=== PATIENT | female | born 1950 | race Asian ===

== ENCOUNTER → 2024-01-29 14:11 | Outpatient (REF) | payer MEDICARE, SELFPAY | LOC: HWRCS 14:11 | PROVIDERS: ATTENDING PHYSICIAN Internal Medicine Cardiovascular Disease; FAMILY PHYSICIAN Internal Medicine | DX: I50.32 Chronic diastolic (congestive) heart failure (principal); I34.1 Nonrheumatic mitral (valve) prolapse; Z01.810 Encounter for preprocedural cardiovascular examination | CPT/HCPCS: 93306 ==

== ENCOUNTER → 2024-03-15 16:00 | Outpatient (REF) | payer MEDICARE, SELFPAY | LOC: DHSLP 16:00 | PROVIDERS: ATTENDING PHYSICIAN Internal Medicine Cardiovascular Disease; FAMILY PHYSICIAN Internal Medicine | DX: G47.33 Obstructive sleep apnea (adult) (pediatric) (principal) | CPT/HCPCS: 95806 ==

== ENCOUNTER 2025-03-24 13:33 | Inpatient (IN) | payer MEDICARE, SELFPAY ==
[2025-03-24] VITALS (15 sets, daily range): BP systolic 105–150; BP diastolic 38–60; BMI 34.9; BMI 33.8
--- NOTE | 2025-03-24 06:08 | ED.GENMED ---
History of Present Illness
<MYRIAM Conde - Last Filed: 03/24/25 11:00>
General
Chief Complaint: Breathing Problem
Source: patient
Exam Limitations: none
Time Seen by Provider: 03/24/25 06:07
Nursing documentation reviewed up to this point in time: agreed with
History of Present Illness
History of Present Illness:
75-year-old female presents to the ER for evaluation. Patient has past medical history of end-stage renal disease, A-fib on Eliquis, hypertension hyperlipidemia venous stasis dermatitis CAD hyperparathyroidism type 2 diabetes. She reports she had
dialysis on Monday is followed by outside talent development specialist. She had a full dialysis but reports has had increasing shortness of breath for the past 1 to 2 weeks which worsened last night. She does feel like she is retaining fluid and has a swelling.
She complains of mild cough but denies any fever or chills. She was on torsemide but that was stopped several weeks ago. She reports he was admitted at [facility] 2 weeks ago for left arm graft however the graft is not functioning. She had dialysis
through the right chest wall catheter.
Patient was recently admitted at [facility]. I reviewed [facility] physician link. the patient was admitted to [facility] March 11 and discharged March 13. She had an acute left upper extremity graft thrombosis and had a thrombectomy. In addition she was found
to have acute PE and was treated on heparin. She was discharged on apixaban 5 mg twice daily. It is documented the patient's baseline hemoglobin is 11-12 however it did drop to 7.3 during hospitalization and she was transfused 1 unit on February
. Her hemoglobin increased to 8.5. In addition she was instructed to stop torsemide until she saw renal as an outpatient as she has minimal urine out
Past History
<MYRIAM Conde - Last Filed: 03/24/25 11:00>
Past History
ED Past Medical History: Other (Pneumonia, cholecystectomy, diabetes, chronic kidney disease stage III, possible sleep apnea)
Social History
Tobacco: Non-smoker
Alcohol: None
Family History
Family History: Other (Diabetes, hypertension, cancer, thyroid)
Phy Exam
<MYRIAM Conde - Last Filed: 03/24/25 11:00>
General Physical Exam
General Presentation: no apparent distress
General age: appears stated age
General Skin: warm and dry
General Habitus: normal
General Mental: alert
General Hydration: appears well hydrated
Pulmonary Exam
Pulmonary Exam: lungs clear and no respiratory distress
Neurological Exam
Neurological Exam: alert and oriented x3
Musculoskeletal Exam
Musculoskeletal Exam: full ROM and other (+ pitting edema to b/l l/e )
Skin Exam
Skin Exam: normal color and warm/dry
Psychiatric Exam
Psychiatric Exam: normal mood/affect
Scores
<MYRIAM Conde - Last Filed: 03/24/25 11:00>
Heart Failure Risk
Heart Failure Risk Score: Not Applicable
Course
<MYRIAM Conde - Last Filed: 03/24/25 11:00>
Orders/Labs/Results
Orders:
Orders
03/24/25 06:18
IV Insert/Care/Rem.- Treatment PRN
03/24/25 06:19
Electrocardiogram (*1) Stat
Reason for Study: Other
Other Reason for Exam: chest pain
Cardiac Monitoring- Treatment ONCE
EKG- Treatment ONCE
CR Chest - 2 Views Urgent
Comment:
Reason For Exam: SOB
03/24/25 06:44
COVID-19 Antigen Urgent
Source: Nasal Swab
Influenza A+B Rapid Molecular Urgent
JJ Source: Nasal Swab
Specimen Description:
03/24/25 07:39
Complete Blood Count/With Diff Urgent
NT-proBNP Urgent
03/24/25 08:53
Comprehensive Metabolic Panel Urgent
03/24/25 09:47
Nitroglycerin Sublingual [Nitrostat (Sublingual)] 0.4 mg SL NOW STA
03/24/25 09:50
Nitroglycerin Sublingual [Nitrostat (Sublingual)] 0.4 mg .ROUTE .STK-MED ONE
03/24/25 10:18
VQ Scan [NM Lung Scan Vent/perf ] Urgent
Comment:
Reason For Exam: SOB hx of PE
03/24/25 12:31
Code Status As Directed
Resuscitation Status: Full Code
Bisacodyl [Dulcolax] 10 mg RECTAL [id number] PRN
Docusate W/Senna [Senokot-S] 1 tablet PO BIDPRN PRN
Polyethylene Glycol Powder [Miralax] 17 grams PO DAILYPRN PRN
03/24/25 12:34
Activity As Directed
Activity Level: Ambulate
Vital Signs As Directed
Frequency: Per unit guidelines
03/24/25 12:37
DIETARY IP CONSULT Routine
Reason for Consult: renal failure
TSH Routine
Urinalysis Routine
Intake/ Output As Directed
Frequency: Per unit guidelines
Call for Urine Output less than: 100 ml
Weight As Directed
Frequency: Daily
O2 Therapy [RESP] Routine
Nasal Cannula Liter Flow: 2 LPM
Titrate/Wean O2 to maintain O2 sat greater than (%): 95
Pulse Ox/spot Check [RESP] Routine
Quantity: 1
Pt Eval And Treat Routine
Activity Level: Ambulate
03/24/25 12:56
Admit/Transfer Patient As Directed
Co-Sign Provider:
Level of Care: Inpatient admission
Assign to:: Telemetry
Physician / Group: Drake Olson
Diagnosis: Dyspnea, ESRD
Reason for Telemetry: Arrhythmia
Date to Stop Telemetry: 03/27/25
Time to Stop Telemetry: 11:00
Reason for Hospitalization: Worsening hypoxemia, ESRD patient, rule out PE
Expected length of stay greater than two midnights?: Yes
ELOS- Estimated Length of Stay in days: 3
I certify the patient meets the requirements for IP care: Yes
03/24/25 12:57
PRN Pain Medication Management As Directed
May give lesser potent ordered pain med per pt: Yes
preference::
Protocol:: Medication orders for pain may be administered in a
manner that supports deferring to patient preference
when the pt is:
- Requesting an ordered lesser potent pain medication.
Least to most potent pain medications are defined
as: acetaminophen < NSAID < tramadol < opioids
(morphine, oxycodone, hydromorphone).
- Requesting a lesser dose of the same medication IF
ORDERED.
- Requesting a less intrusive route of administration
if both routes are prescribed by the provider (PO <
IV).
03/24/25 12:58
NEPHROLOGY CONSULT Routine
Consulting Provider: Tawana Childers
Was physician already notified: Yes
Reason for consult: ESRD
03/25/25 06:00
Basic Metabolic Panel IN AM
Complete Blood Count/With Diff IN AM
03/27/25 11:00
DC Protocol for Telemetry ONCE
Abnormal Lab Results
03/24/25 03/24/25
07:39 08:53
RBC 2.66 L 10^6/uL
(4.20-5.40)
Hgb 8.1 L g/dL
(12.0-16.0)
Hct 23.9 L %
(37.0-47.0)
RDW 14.9 H %
(11.5-14.5)
Abs Immat Gran (auto) 0.1 H 10^3/uL
(0-0.05)
Absolute Lymphs (auto) 1.1 L 10^3/uL
(1.2-3.4)
Absolute Monos (auto) 1.2 H 10^3/uL
(0.1-0.6)
Immature Gran % 1.0 H %
(0-0.5)
Lymphocytes % 12.8 L %
(20.5-51.1)
Monocytes % 13.9 H %
(1.7-9.3)
Eosinophils % 7.6 H %
(0-6)
Sodium 129 L mmol/L
(135-145)
Chloride 96 L mmol/L
(98-107)
BUN 66 H mg/dl
(7-17)
Creatinine 4.9 H* mg/dL
(0.6-1.0)
Glucose 306 H mg/dl
(70-99)
Alkaline Phosphatase 292 H U/L
(38-126)
Total Protein 6.1 L g/dl
(6.3-8.2)
Albumin 2.7 L g/dl
(3.5-5.0)
03/24/25 07:39
03/24/25 08:53
Vital Signs
Initial and Last Documented VS:
Initial Vital Signs
Temp Pulse Resp BP Pulse Ox
36.9 C 68 36 136/56 91
03/24/25 05:45 03/24/25 05:45 03/24/25 05:45 03/24/25 05:45 03/24/25 05:45
Last Documented Vital Signs
Temp Pulse Resp BP Pulse Ox
37.9 C 65 21 120/45 93
03/24/25 06:11 03/24/25 10:22 03/24/25 10:22 03/24/25 10:22 03/24/25 10:15
Ampoule Sealer consulted with Physician
Ampoule Sealer consulted with physician?: Yes
Name of Physician Consulted: Cecilia
<Lon Ambrosio Cecilia, DO - Last Filed: 03/24/25 13:05>
Orders/Labs/Results
Orders:
Orders
03/24/25 06:18
IV Insert/Care/Rem.- Treatment PRN
03/24/25 06:19
Electrocardiogram (*1) Stat
Reason for Study: Other
Other Reason for Exam: chest pain
Cardiac Monitoring- Treatment ONCE
EKG- Treatment ONCE
CR Chest - 2 Views Urgent
Comment:
Reason For Exam: SOB
03/24/25 06:44
COVID-19 Antigen Urgent
Source: Nasal Swab
Influenza A+B Rapid Molecular Urgent
JJ Source: Nasal Swab
Specimen Description:
03/24/25 07:39
Complete Blood Count/With Diff Urgent
NT-proBNP Urgent
03/24/25 08:53
Comprehensive Metabolic Panel Urgent
03/24/25 09:47
Nitroglycerin Sublingual [Nitrostat (Sublingual)] 0.4 mg SL NOW STA
03/24/25 09:50
Nitroglycerin Sublingual [Nitrostat (Sublingual)] 0.4 mg .ROUTE .STK-MED ONE
03/24/25 10:18
VQ Scan [NM Lung Scan Vent/perf ] Urgent
Comment:
Reason For Exam: SOB hx of PE
03/24/25 12:31
Code Status As Directed
Resuscitation Status: Full Code
Bisacodyl [Dulcolax] 10 mg RECTAL [id number] PRN
Docusate W/Senna [Senokot-S] 1 tablet PO BIDPRN PRN
Polyethylene Glycol Powder [Miralax] 17 grams PO DAILYPRN PRN
03/24/25 12:34
Activity As Directed
Activity Level: Ambulate
Vital Signs As Directed
Frequency: Per unit guidelines
03/24/25 12:37
DIETARY IP CONSULT Routine
Reason for Consult: renal failure
TSH Routine
Urinalysis Routine
Intake/ Output As Directed
Frequency: Per unit guidelines
Call for Urine Output less than: 100 ml
Weight As Directed
Frequency: Daily
O2 Therapy [RESP] Routine
Nasal Cannula Liter Flow: 2 LPM
Titrate/Wean O2 to maintain O2 sat greater than (%): 95
Pulse Ox/spot Check [RESP] Routine
Quantity: 1
Pt Eval And Treat Routine
Activity Level: Ambulate
03/24/25 12:56
Admit/Transfer Patient As Directed
Co-Sign Provider:
Level of Care: Inpatient admission
Assign to:: Telemetry
Physician / Group: Drake Olson
Diagnosis: Dyspnea, ESRD
Reason for Telemetry: Arrhythmia
Date to Stop Telemetry: 03/27/25
Time to Stop Telemetry: 11:00
Reason for Hospitalization: Worsening hypoxemia, ESRD patient, rule out PE
Expected length of stay greater than two midnights?: Yes
ELOS- Estimated Length of Stay in days: 3
I certify the patient meets the requirements for IP care: Yes
03/24/25 12:57
PRN Pain Medication Management As Directed
May give lesser potent ordered pain med per pt: Yes
preference::
Protocol:: Medication orders for pain may be administered in a
manner that supports deferring to patient preference
when the pt is:
- Requesting an ordered lesser potent pain medication.
Least to most potent pain medications are defined
as: acetaminophen < NSAID < tramadol < opioids
(morphine, oxycodone, hydromorphone).
- Requesting a lesser dose of the same medication IF
ORDERED.
- Requesting a less intrusive route of administration
if both routes are prescribed by the provider (PO <
IV).
03/24/25 12:58
NEPHROLOGY CONSULT Routine
Consulting Provider: Tawana Childers
Was physician already notified: Yes
Reason for consult: ESRD
03/25/25 06:00
Basic Metabolic Panel IN AM
Complete Blood Count/With Diff IN AM
03/27/25 11:00
DC Protocol for Telemetry ONCE
Abnormal Lab Results
03/24/25 03/24/25
07:39 08:53
RBC 2.66 L 10^6/uL
(4.20-5.40)
Hgb 8.1 L g/dL
(12.0-16.0)
Hct 23.9 L %
(37.0-47.0)
RDW 14.9 H %
(11.5-14.5)
Abs Immat Gran (auto) 0.1 H 10^3/uL
(0-0.05)
Absolute Lymphs (auto) 1.1 L 10^3/uL
(1.2-3.4)
Absolute Monos (auto) 1.2 H 10^3/uL
(0.1-0.6)
Immature Gran % 1.0 H %
(0-0.5)
Lymphocytes % 12.8 L %
(20.5-51.1)
Monocytes % 13.9 H %
(1.7-9.3)
Eosinophils % 7.6 H %
(0-6)
Sodium 129 L mmol/L
(135-145)
Chloride 96 L mmol/L
(98-107)
BUN 66 H mg/dl
(7-17)
Creatinine 4.9 H* mg/dL
(0.6-1.0)
Glucose 306 H mg/dl
(70-99)
Alkaline Phosphatase 292 H U/L
(38-126)
Total Protein 6.1 L g/dl
(6.3-8.2)
Albumin 2.7 L g/dl
(3.5-5.0)
03/24/25 07:39
03/24/25 08:53
Vital Signs
Initial and Last Documented VS:
Initial Vital Signs
Temp Pulse Resp BP Pulse Ox
36.9 C 68 36 136/56 91
03/24/25 05:45 03/24/25 05:45 03/24/25 05:45 03/24/25 05:45 03/24/25 05:45
Last Documented Vital Signs
Temp Pulse Resp BP Pulse Ox
37.9 C 65 21 120/45 93
03/24/25 06:11 03/24/25 10:22 03/24/25 10:22 03/24/25 10:22 03/24/25 10:15
Procedures
<Lon Brooks DO - Last Filed: 03/24/25 13:05>
IV Access
Indication: Emergent access required and RN unable to obtain
Performed by:: Dr. Cecilia Arias
Site:: Ultrasound-guided right AC
Gauge:: 20
Complications: Unsuccessful
Ultrasound Guidance: Yes
<MYRIAM Conde - Last Filed: 03/24/25 11:00>
MDM/Problems Addressed
Differential Diagnosis Includes:
Not limited to fluid overload or congestive heart failure PE symptomatic anemia
MDM/Problems Addressed:
Patient is documented as a 75-year-old female with end-stage renal disease just had dialysis on Monday presented for increasing shortness of breath. She was hospitalized at [facility] March 11 March 13 for left upper extremity graft thrombosis with
thrombectomy however was also found to have a PE despite Eliquis. She presents here short of breath. While at [facility] torsemide was stopped. She does have some lower extremity swelling on exam. She is a very difficult stick and has a 24-gauge IV in
her right hand therefore CAT scan unable to be performed. IV team was consulted and this is the access we have presently. Case reviewed with ED physician who evaluated patient at bedside. Will order VQ scan patient will require admission for
symptomatic shortness of breath. She will require dialysis. Case reviewed with nephrology. Patient does have a right chest wall catheter.
Patient with low-grade temp of 100.2 she has a normal white count hemoglobin 8.0 which is low from baseline as documented at [facility]. Her sodium is 129 despite elevated renal function her potassium is normal at 4.0. Her BNP is elevated however
likely also as she is a dialysis patient. COVID-negative.
Chronic conditions affecting care:
End-stage renal disease, chf PE
<MYRIAM Conde - Last Filed: 03/24/25 11:00>
*Radiology
Radiology exam reviewed: radiology read reviewed (Mild CHF with probable small effusion)
*Pulse Oximetry
SaO2: 91
Oxygen Mode of Delivery: Room air
Patient hypoxic: yes
*EKG
Interpreted by ED Provider?: Yes
Interpretation: abnormal
Heart Rate: 69
Rate: normal
Rhythm: sinus
Ischemia: non-specific ST changes
*Critical Care Note
Total Time (30-74mins, 75-104mins- exclusive of procedures): Not Applicable
Data Reviewed
Review of Other/Old Records Reveals: Discharge Summary and Other ([facility] records )
Source: patient and family
<MYRIAM Conde - Last Filed: 03/24/25 11:00>
Patient Management
Discussion with other providers: Manager Philosophy (Nephrology Dr. Childers )
ED Attending Note
<MYRIAM Conde - Last Filed: 03/24/25 11:00>
-
Portions of this chart may have been created with voice recognition software.� Occasional wrong word or��sound alike� substitutions may have occurred due to the inherent limitations of voice recognition software.
<Lon Hebert Cecilia, DO - Last Filed: 03/24/25 13:05>
ED Attending Note
Patient seen and examined by attending physician: Yes
I performed the substantive portion of visit, reviewed & personally made and approve the management plan that is documented in note by myself or TEAGAN.: Yes
ED Attending Note:
I evaluated patient at bedside. The patient has chronically ill in appearance. She appears somewhat lethargic. I spoke to the son over the phone who is very concerned because of the increased work of breathing. She already has had a blood clot
while on Eliquis. She was placed on heparin when she was found to have an acute PE at [facility] last month. She was dialyzed yesterday and still has shortness of breath. Torsemide was recently discontinued at 10 as she was felt to be oliguric however
the patient's son states that she makes 'normal' amount of urine. BNP 10,500 and 2024 and in 2020 it was 2500. I personally attempted numerous tries to get an AC line on the right side but could not obtain access even with ultrasound guidance.
Will plan VQ scan.
Discharge Plan
Departure
Patient Disposition: Admit
Date of Disposition: 03/24/25
Time of Disposition:
Admit to: ICU
Admit to doctor: hospitalist
Presentation/result/management discussed w/ accepting MD/DO: Hospitalist
Patient with high blood pressure during this ER visit?: Yes
Condition: Fair
Covid-19: Not Applicable
Discharge Problem:
Dyspnea
Prescriptions:
No Action
ferrous sulfate [FeroSul] 325 MG tablet
325 mg PO DAILY@1200
docusate sodium 100 MG capsule
100 mg PO DAILY
atorvastatin 40 mg tablet
40 mg PO HS
metoprolol tartrate 100 mg tablet
100 mg PO DAILY
amiodarone 200 mg tablet
200 mg PO DAILY
pantoprazole 20 mg tablet,delayed release (DR/EC)
20 mg PO DAILY
repaglinide 0.5 mg tablet
0.5 mg PO BID@0800,1700
amlodipine 10 mg tablet
10 mg PO DAILY
gabapentin 100 mg capsule
100 mg PO HS
metoprolol succinate 25 mg tablet extended release 24 hr
25 mg PO DAILY
Eliquis 5 mg tablet
5 mg PO BID
vitamin B complex Tablet
1 tab PO DAILY
cholecalciferol (vitamin D3) [Vitamin D3] 25 mcg (1,000 unit) Tablet
25 mcg PO DAILY
Referrals:
UNKNOWN - PT DOES,NOT KNOW [Family Provider]
Interventions
Interventions:
*Risk Screen - Suicide Last Done: 03/24/25 05:45
*General Assessment Last Done: 03/24/25 05:45
*Neglect/Abuse Screening Last Done: 03/24/25 05:45
*ED- Fall Risk Assessment Last Done: 03/24/25 05:45
*ED COVID-19 Vaccine History Last Done: 03/24/25 05:45
*ED Influenza Vaccine History Last Done: 03/24/25 06:06
ED- Cardiac Assessment Last Done: 03/24/25 07:29
ED- Pulmonary Assessment Last Done: 03/24/25 07:29
Discharge Date and Time
Print Language: DANISH
[2025-03-24 07:26] LABS: COVID-19 Antigen Negative (Negative)
[2025-03-24 07:47] LABS: Hematocrit 23.9 % (37.0-47.0); Hemoglobin 8.1 g/dL (12.0-16.0); Mean Corp Hgb Conc. 33.9 g/dL (33.0-37.0); Mean Corpuscular Volume 89.8 fL (81.0-99.0); Nucleated Red Blood Cells % 0 %; Platelet Count 214 10^3/uL (130-400); Red Cell Dist. Width 14.9 % (11.5-14.5)
[2025-03-24 09:32] LABS: ALT (SGPT) 19 U/L (0-35); AST (SGOT) 19 U/L (14-36); Albumin 2.7 g/dl (3.5-5.0); Alkaline Phosphatase 292 U/L (38-126); Blood Urea Nitrogen 66 mg/dl (7-17); Calcium 8.4 mg/dl (8.4-10.2); Carbon Dioxide 30 mmol/L (22-30); Chloride 96 mmol/L (98-107); Estimated Creatinine Clearance 9 ml/min; Glucose 306 mg/dl (70-99); Potassium 4.0 mmol/L (3.5-5.1); Sodium 129 mmol/L (135-145); Total Protein 6.1 g/dl (6.3-8.2); eGFR 8.62
--- NOTE | 2025-03-24 11:58 | HPS.HSE ---
Family Physician
-
Family Physician: Dr. Vipul Wild, [place], [place]
Chief Complaint
-
Shortness of breath
History of Present Illness
75-year-old female with k/h/o end-stage renal disease, A-fib on Eliquis, hypertension, hyperlipidemia, venous stasis dermatitis, type 2 diabetes, CAD, hyperparathyroidism
With shortness of breath. Shortness of breath started around 1 AM today when she was sitting. It progressively worsened while on lying supine. She had the similar episode before but this episode is the worst according to her. Shortness of breath
is associated with palpitation, heaviness of her leg. She is not experiencing chest pain, dizziness, fever, chills, stomach pain, distention. She goes for dialysis every week. Her last dialysis was on Monday and she does not has a concern after
the procedure.
She was admitted on pain medicine on March 11 and discharged March 13 for her left arm graft which is not working now. She underwent left upper extremity graft thrombosis and had a thrombectomy. On the course of hospitalization she was found
to have acute PE and was treated on heparin. While on discharge apixaban 5 mg twice daily started. While on admission she had a transfusion of 1 unit on March 10. She was instructed to stop torsemide until she saw morphology teacher as an outpatient.
Medical History
Past Medical History
Past Medical History: Reports Arrhythmia, CAD, HTN, Hypercholesterolemia, Hypothyroidism, NIDDM, Renal Failure and Other (Possible sleep apnea, venous stasis, pulmonary emboli.)
Past Surgical History: Reports Cholecystectomy
Additional Past Surgical History:
Dialysis every week.
Social History
Tobacco: Non-smoker
Alcohol: None
Drug: None
Personal: Single
Living: With Family
Employment: Not Employed
Family History
Family History: Cancer, Diabetes, Hypertension and Other (Thyroid)
Allergies / Home Medications
Allergies
Allergy/AdvReac Type Severity Reaction Status Date / Time
acetaminophen (From Percocet) Allergy Hives Verified 03/24/25 05:44
oxycodone (From Percocet) Allergy Hives Verified 03/24/25 05:44
sulfite Allergy Unknown Verified 03/24/25 05:44
Home Medications
docusate sodium 100 mg capsule 100 mg PO DAILY Constipation 12/22/20
ferrous sulfate 325 mg (65 mg iron) tablet (FeroSul) 325 mg PO DAILY@1200 Supplement 12/22/20
amiodarone 200 mg tablet 200 mg PO DAILY Arrhythmia 03/24/25
amlodipine 10 mg tablet 10 mg PO DAILY Blood Pressure 03/24/25
apixaban 5 mg tablet (Eliquis) 5 mg PO BID Blood Clot Prevention/Tx 03/24/25
atorvastatin 40 mg tablet 40 mg PO HS High Cholesterol 03/24/25
cholecalciferol (vitamin D3) 25 mcg (1,000 unit) tablet (Vitamin D3) 25 mcg PO DAILY Supplement 03/24/25
gabapentin 100 mg capsule 100 mg PO HS Pain 03/24/25
metoprolol succinate 25 mg tablet,extended release 24 hr 25 mg PO DAILY 03/24/25
metoprolol tartrate 100 mg tablet 100 mg PO DAILY 03/24/25
pantoprazole 20 mg tablet,delayed release 20 mg PO DAILY Gastrointestinal Issue 03/24/25
repaglinide 0.5 mg tablet 0.5 mg PO BID@0800,1700 Diabetes 03/24/25
vitamin B complex 1 tab PO DAILY Supplement 03/24/25
Allergies reflects when Allergies were last updated in [facility].
Home Medications with original date entered in [facility]
Allergy/Medication List:
Allergies
Allergy/AdvReac Type Severity Reaction Status Date / Time
acetaminophen (From Percocet) Allergy Hives Verified 03/24/25 05:44
oxycodone (From Percocet) Allergy Hives Verified 03/24/25 05:44
sulfite Allergy Unknown Verified 03/24/25 05:44
Review of Systems
-
History Source: Patient
A 12 point ROS was completed and negative except as noted: Yes
Constitutional: Reports See HPI
Musculoskeletal: Reports Joint Pain (Right and left knee)
Skin: Reports Other (Bruises on the right side forearm, left side arm.)
Neurological: Reports No Symptoms
Endocrine: Reports No Symptoms
Hematologic/Lymphatic: Reports No Symptoms
Psych: Reports No Symptoms
Physical Exam
Vital Signs
Vital Signs
Temp Pulse Resp BP Pulse Ox
100.2 F 65 21 120/45 93
03/24/25 06:11 03/24/25 10:22 03/24/25 10:22 03/24/25 10:22 03/24/25 10:15
Physical Exam
General: Well Developed, Well Nourished, Morbidly Obese and Other (2 L of oxygen nasal cannula)
HEENT: Anicteric and PERRLA
Respiratory: Clear
Cardiac: S1/S2 and Regular Rhythm
GI: Soft, Non Tender and Non Distended
Musculoskeletal: Edema, Left Lower Extremity and Edema, Right Lower Extremity
Skin: Warm and IV/Catheter Site (Bruises)
Neuro: AO x 3, No Motor Deficits and Nonfocal/grossly intact
Psych: Calm
Laboratory Results
-
03/24/25 07:39
03/24/25 08:53
Laboratory Results
Total Bilirubin 1.0 mg/dl (0.2-1.3) 03/24/25 08:53
AST 19 U/L (14-36) 03/24/25 08:53
ALT 19 U/L (0-35) 03/24/25 08:53
Alkaline Phosphatase 292 U/L (38-126) H 03/24/25 08:53
Impression/Plan
-
IMPRESSION & PLAN:
75-year-old female k/h/o end-stage renal disease, A-fib on Eliquis, hypertension, hyperlipidemia, venous stasis dermatitis, CAD, type 2 diabetes presented with shortness of breath
# Shortness of breath secondary to volume overload:
BP 120/45, sa o2 93 with 2 L of oxygen nasal cannula,
Temperature 100.2 F ( monitor temperature curve),
Chest x-ray on 03/24 impression showed mild CHF with probable very small left effusion.
Shortness of breath, pedal edema due to volume overload, and probably patient might improve after dialysis.
Embroidery Assistant consulted for ESRD.
Monitor I/O
V/Q scan ordered and suspicion for pulmonary emboli by given the previous history of recent pulmonary emboli, shortness of breath, palpitation.
Monitor weight.
Patient on telemetry.
Start renal diet.
EKG order placed.
Record of request from the [facility] to know the reason for torsemide hold.
Flu, COVID test negative.
# End-stage renal disease:
Placed an order for renal diet.
Current creatinine 4.9 (h).
Continue routine dialysis.
Hemoglobin currently 8.1 (l), monitor Hb routine.
Nephrology consulted.
# A-fib:
Currently on amiodarone 200 mg
Apixaban 5 mg twice daily.
#Diabetes:
Insulin sliding scale started.
Repaglinide 0.5 mg stopped.
Check blood glucose regularly.
# Hypertension:
Continue metoprolol XL 25 mg
Amlodipine 10 mg
# Hyperlipidemia:
Continue atorvastatin 40 mg
# GERD:
Continue pantoprazole 20 mg.
# Hypothyroidism:
Ordered TSH in a.m.
Currently she is not on levothyroxine at her home medication list.
Code: Full
Disposition: Home
DVT prophylaxis: Eliquis 5 mg twice daily.
--- NOTE | 2025-03-24 13:03 | W.CON.NEPH ---
Consultation
-
Date/Time Consultation Requested: 03/24/25 1130
Date/Time Consultation Performed: 03/24/25 1245
Requesting Provider: Drake Mabry
Performing Provider: Tawana Burton
Reason for Consultation: ESRD
Medical History
-
Chief Complaint: SOB
History of Present Illness:
This is a 75-year-old female who has history of hypertension on amlodipine, metoprolol, A. fib on amiodarone, Eliquis, hyperlipidemia on atorvastatin, diabetes with microvascular complications retinopathy, nephropathy ESRD on dialysis Monday
Monday at [facility], diabetic neuropathy on gabapentin, GERD on PPI, chronic anemia who presented with shortness of breath. Reportedly she was at [facility] for a clotted AVgraft which required thrombectomy however still remain
nonfunctional, during this admission she noted to have small PE and resumed on AC with ELiquis. She reports that during the recent admission at the [facility] had anemia requiring transfusion, denies any blood in the stools. She is also asked to stop
torsemide at discharge. Since her AV graft remained nonfunctional she had tunneled HD catheter placed last week and had dialysis last without difficulty. She reports no issues with the dialysis are missing any treatments. She typically
gets 3 L of fluid removal in each treatment. Reports mildly compliant with the salt in the fluid restriction. She continues to urinate 2-3 times a day. She is unclear whether she gained any weight from her baseline. Denies any chest pain, nausea
or vomiting or abdominal pain. She feels very tired and weak. Chest x-ray in the ER shows CHF-mild, hb 8.1, na 129, k 4, BG 306. Nephrology asked to evaluate for dialysis needs.
Past Medical History
ESRD
HTN
HLD
left AVG -non functionn
Arrhythmia
CAD
PE
NIDDM
diabetes retinopathy, nephropathy, neuropathy
Anemia
CHFp EF
Hypothyroidism
venous stasis
Social History
Tobacco: Non-Smoker
Alcohol: None
Drug: None
Living: With Family
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
Family History
no CKD
Family History: Not Pertinent
Allergies / Home Medications
Allergy/AdvReac Type Severity Reaction Status Date / Time
acetaminophen (From Percocet) Allergy Hives Verified 03/24/25 05:44
oxycodone (From Percocet) Allergy Hives Verified 03/24/25 05:44
sulfite Allergy Unknown Verified 03/24/25 05:44
�Medication �Instructions �Recorded �Confirmed �Type
docusate sodium 100 mg capsule 100 mg PO DAILY Constipation 12/22/20 03/24/25 History
ferrous sulfate 325 mg (65 mg 325 mg PO DAILY@1200 Supplement 12/22/20 03/24/25 History
iron) tablet (FeroSul)
amiodarone 200 mg tablet 200 mg PO DAILY Arrhythmia 03/24/25 03/24/25 History
amlodipine 10 mg tablet 10 mg PO DAILY Blood Pressure 03/24/25 03/24/25 History
apixaban 5 mg tablet (Eliquis) 5 mg PO BID Blood Clot 03/24/25 03/24/25 History
Prevention/Tx
atorvastatin 40 mg tablet 40 mg PO HS High Cholesterol 03/24/25 03/24/25 History
cholecalciferol (vitamin D3) 25 25 mcg PO DAILY Supplement 03/24/25 03/24/25 History
mcg (1,000 unit) tablet (Vitamin
D3)
gabapentin 100 mg capsule 100 mg PO HS Pain 03/24/25 03/24/25 History
metoprolol succinate 25 mg 25 mg PO DAILY 03/24/25 History
tablet,extended release 24 hr
metoprolol tartrate 100 mg tablet 100 mg PO DAILY 03/24/25 History
pantoprazole 20 mg tablet,delayed 20 mg PO DAILY Gastrointestinal 03/24/25 03/24/25 History
release Issue
repaglinide 0.5 mg tablet 0.5 mg PO BID@0800,1700 Diabetes 03/24/25 03/24/25 History
vitamin B complex 1 tab PO DAILY Supplement 03/24/25 03/24/25 History
Review of Systems
-
All other systems: Negative unless noted
Physical Exam
Vital Signs
Vital Signs
Temp Pulse Resp BP Pulse Ox
100.2 F 65 21 120/45 93
03/24/25 06:11 03/24/25 10:22 03/24/25 10:22 03/24/25 10:22 03/24/25 10:15
Lab Results
WBC 8.9 10^3/uL (4.8-10.8) 03/24/25 07:39
RBC 2.66 10^6/uL (4.20-5.40) L 03/24/25 07:39
Hgb 8.1 g/dL (12.0-16.0) L 03/24/25 07:39
Hct 23.9 % (37.0-47.0) L 03/24/25 07:39
Plt Count 214 10^3/uL (130-400) 03/24/25 07:39
Sodium 129 mmol/L (135-145) L 03/24/25 08:53
Potassium 4.0 mmol/L (3.5-5.1) 03/24/25 08:53
Chloride 96 mmol/L (98-107) L 03/24/25 08:53
Carbon Dioxide 30 mmol/L (22-30) 03/24/25 08:53
BUN 66 mg/dl (7-17) H 03/24/25 08:53
Creatinine 4.9 mg/dL (0.6-1.0) H* 03/24/25 08:53
eGFR 8.62 03/24/25 08:53
Glucose 306 mg/dl (70-99) H 03/24/25 08:53
Calcium 8.4 mg/dl (8.4-10.2) 03/24/25 08:53
Zpm-U-Ysxroxezawf Pept 94112 pg/ml 03/24/25 07:39
Albumin 2.7 g/dl (3.5-5.0) L 03/24/25 08:53
Physical Exam
General: Awake, Alert, Oriented, AOx3, No Distress and Nontoxic
HEENT: EOMI, Anicteric, Conjunctivae Clear and Facial Symmetry
Respiratory: Crackels (bases), Normal Excursion and Nonlabored Respirations
Cardiac: S1/S2, Regular Rate/Rhythm and Murmur
Breast: Deferred by me
Abdomen: Soft, Nontender and Nondistended
Musculoskeletal: No Cyanosis and Edema (1)
Skin: No Rash
Neuro: Nonfocal/Grossly Intact
Psych: Insight/judgement good and Appropriate
Vascular Access: AVG (non functioning) and CVC
Data Reviewed
-
Labs: Labs Reviewed by me, Discussed with Patient and Discussed with Family
Assessment/Plan
-
IMP:
ESRD MWF [facility]
right CW tunneled catheter
Acute on chr CHF pEF
Chr anemia of CKD
HTN
HLD
left AVG -non function
Afib
PE
NIDDM
diabetes retinopathy, nephropathy, neuropathy
Hypothyroidism
GERD
PLan:
A/w sob , CXR Noted CHF and anemia hb 8.1
will arrange for HD today and UF as tolerates
AVG non function hence use CVC and she is not interested in any more vasc interventions
BP stable, resume home meds post HD
ok to resume Torsemide reportedly 100mg non hD days as she still seem to have residual UOP -monitor daily
We also reviewed imp of FR 40ounces/day(she is doing >48 at home), low salt diet strictly
high dose RICKY and check Fe studies
Hyponatremia is dilutional and mostly from hyperglycemia
d/w pt and family at bedside in detail
T max noted 100.2-would check bld cx
--- NOTE | 2025-03-24 14:14 | CM ---
CM met with pt, son/Olayinka and friend/Bobo bedside
Pt and son reside together in a 2SH with 1 threshold step- pt has a 1st floor set up, sleeps in day bed
She is independent with ambulation short distances with use of a WW- occasionally requires assist with ambulation
Pt is typically is independent with personal care tasks- occasionally requires assistance
She is AxO 3x
She attends outpt HD [facility] MWF- family transports
She has a private pay caregiver/family friends 8pm-8am daily for assistance if needed
Her sister is currently staying with them to provide assistance during the days while son is at work
She is current with [facility]
PCP- Vipul Wild
Rx- [facility]
[employer] provided to son for home and community based services, particularly waiver vs [employer] program
CM will follow for dc planning
Dischargw Disposition- home with [facility] and out [facility] Fax- [phone]
[2025-03-24 16:11] LABS: Urine Character Cloudy (Clear)
[2025-03-24 16:12] LABS: Iron 27 ug/dl (37-170)
[2025-03-24 16:21] LABS: Total Iron Binding Capacity 185 ug/dl (265-497)
[2025-03-24 16:27] LABS: Urine Red Blood Cell 0-2 /HPF (0-2); Urine White Cell 70-80 /HPF (0-5)
[2025-03-24 17:03] LABS: TSH 0.35 uIU/ml (0.47-4.68)
[2025-03-24 17:08] LABS: Ferritin 388.0 ng/ml (11.1-264.0)
[2025-03-24] MEDS: RETACRIT 10000 UNITS IV (17:25)
--- NOTE | 2025-03-24 17:28 | W.PN.NEPH.HD ---
Assessment
-
pt seen during HD
vitals stable
UF as tolerates
last HD was on
likely extra UF tomorrow
CVC functions fine
d/w pt and sister at bedside
Progress Note - Hemodialysis
-
Date of Service: March 24, 2025
Duration: 30 minutes and 3 hours
Potassium Bath: 3
Calcium Bath: 2.5
Opti-Dialyzer: 160
Ultrafiltration: Other (2.5-3.5kg)
Blood Flow: 400
Dialysate Flow: 600
Heparin: no
EPO: [id number]
[2025-03-24 17:56] LABS: Glucose - Point of Care 213 mg/dl (70-99)
[2025-03-24] MEDS: PRANDIN PO (18:00)
[2025-03-24] MEDS: NOVOLOG FLEXPEN-MODERATE RESISTANCE SC ×2 (18:00→18:57)
[2025-03-24 18:53] LABS: Hepatitis B Surface Antigen Negative (Negative)
[2025-03-24 20:12] LABS: Glucose - Point of Care 180 mg/dl (70-99)
[2025-03-24] MEDS: ELIQUIS 5 MG PO (20:16)
[2025-03-24] MEDS: PRANDIN 0.5 MG PO (20:16)
[2025-03-24] MEDS: TYLENOL 650 MG PO (20:23)
[2025-03-24] MEDS: NEURONTIN 100 MG PO (21:36)
[2025-03-24] MEDS: LIPITOR 40 MG PO (21:36)
[2025-03-24] MEDS: MELATONIN 5 MG PO (21:36)
--- NOTE | 2025-03-24 23:15 | PTCARENOTE ---
Pt with pause for 2.47 seconds, in 30's-40's on tele. Then back to sinus rhythm in 60's. Provider notified. New order to hold metoprolol XL for the morning.
--- NOTE | 2025-03-24 23:24 | W.PN.UPDATE ---
Update Note
Progress Note Update
Patient is bradycardia with hr 38, pauses up to 2.47 sec, asymptomatic with PMH of sleep apnea. Currently on metoprolol will hold and CPAP ordered.��
[2025-03-24 23:37] LABS: Glucose - Point of Care 212 mg/dl (70-99)
[2025-03-25] VITALS (7 sets, daily range): BP systolic 102–136; BP diastolic 45–53; PULSE 73; O2SAT 97; BMI 32.4
--- NOTE | 2025-03-25 06:37 | W.PN.HOSP.TC ---
Addendum entered and electronically signed by Drake Olson, DO 03/26/25 11:55:
CDI: Decompensated HFpEF, type IV cardiorenal. Paroxysmal atrial fibrillation
Original Note:
Today's Communication/Plan
-
Repeat CBC, CMP,
Free T3, T4 pending
Toprol-XL 25 mg restarted
Assessment / Plan
Assessment / Plan
75-year-old female k/h/o end-stage renal disease, A-fib on Eliquis, hypertension, hyperlipidemia, venous stasis dermatitis, CAD, type 2 diabetes presented with shortness of breath
# Shortness of breath secondary to volume overload:
BP 120/45, sa o2 93 with 2 L of oxygen nasal cannula,
Temperature 98.2 F, blood culture results are pending ( monitor temperature curve),
Chest x-ray on 03/24 impression showed mild CHF with probable very small left effusion.
Shortness of breath, pedal edema due to volume overload, patient improved after hemodialysis yesterday.
Monitored I/O-120/150 mL
V/Q scan -impression 03/24/2025 mentioned
1. Low probability of pulmonary embolism,
2. Findings consistent with both airway disease.
weight reduced from 81 kg at the time of admission to 77.8 kg today, because of hemodialysis.
Patient on telemetry.
Restricted diet with less than 2 g sodium, less than 2 g potassium.
No fluid restriction.
Record of request from the [facility] to know the reason for torsemide hold.
Flu, COVID test negative.
Patient never used a CPAP before at home and she was never diagnosed for sleep apnea.
# End-stage renal disease:
Restricted diet with less than 2 g sodium, less than 2 g potassium.
Current creatinine 4.9 (h).
Patient felt better after hemodialysis 600 mL yesterday. Today she is scheduled for hemodialysis.
Hemoglobin currently 8.1 (l), monitor Hb routine.
Nephrology consulted.
Planning to restart torsemide after discussing with developer support engineer.
updates the results to the son.
Asymptomatic bacteriuria:
Urinalysis studies reports 70-80 A
Urine albumin trace 3+, many urine bacteria,
MRSA, blood culture results are pending
# A-fib:
Currently on amiodarone 200 mg
Apixaban 5 mg twice daily.
#Diabetes:
Insulin sliding scale started.
Repaglinide 0.5 mg stopped.
Check blood glucose regularly.
# Hypertension:
Restarted metoprolol XL 25 mg. Last night while on sleep patient had bradycardia probably a physiological. If there is more than 10 sinus pauses is pathological.
Amlodipine 10 mg
# Hyperlipidemia:
Continue atorvastatin 40 mg
# GERD:
Continue pantoprazole 20 mg.
# Hypothyroidism:
Currently she is not on levothyroxine at her home medication list.
According to patient she was never diagnosed as hypothyroidism and never had levothyroxine.
Currently her TSH-0.3 low.
Ordered free T3, T4 levels.
Code: Full
Disposition: Home
DVT prophylaxis: Eliquis 5 mg twice daily.
Anticipated Discharge: 24 - 48 hours
Subjective/Interval History
-
Date of Service: March 25, 2025
Overnight the patient had back pain which started on the right side at nighttime, dull in nature, not radiating towards the pelvis, not associated with dysuria. She had good sleep.
She is currently experiencing dyspnea when she sits. No concern for chest pain, palpitation, dizziness.
She passed twice urine output.
According to the nurse the patient went for the sinus pause with bradycardia heart rate 38 twice overnight, so they held Toprol XL 25 mg.
Objective Data
-
Labs:
Laboratory Results
03/25/25
06:00
WBC Pending
Hgb Pending
Hct Pending
Plt Count Pending
Sodium Pending
Potassium Pending
Chloride Pending
Carbon Dioxide Pending
BUN Pending
Creatinine Pending
Glucose Pending
Calcium Pending
Vital Signs:
Vital Signs
Temp Pulse Resp BP Pulse Ox
98.3 F 65 16 107/48 95
03/25/25 03:00 03/25/25 03:00 03/25/25 03:00 03/25/25 03:00 03/25/25 03:00
I&O
03/23/25 03/24/25 03/25/25
06:59 06:59 06:59
Intake Total 120 / 120
Output Total 150 / 150
Balance -30 / -30
Review of Systems
-
History Source: Patient
All other systems: Reviewed and negative
Physical Exam
-
General: Well Developed, Appears in Distress and Morbidly Obese
Respiratory: Crackles (Bilateral lower lobe crackles present)
Cardiac: Regular Rhythm and S1/S2
GI: Soft, Nontender and Nondistended
Genito-urinary: No Costovertebral Tender
Musculoskeletal: Other (Bilateral pitting pedal edema 2+)
Skin: Warm
Neuro: AO x 3
Psych: Calm
[2025-03-25 07:54] LABS: Glucose - Point of Care 93 mg/dl (70-99)
[2025-03-25] MEDS: NOVOLOG FLEXPEN-MODERATE RESISTANCE SC (09:34)
[2025-03-25] MEDS: VITAMIN D3 (cholecalciferol) 25 MCG PO (09:35)
[2025-03-25] MEDS: PROTONIX 20 MG PO (09:35)
[2025-03-25] MEDS: NORVASC 10 MG PO (09:35)
[2025-03-25] MEDS: COLACE 100 MG PO (09:35)
[2025-03-25] MEDS: PRANDIN 0.5 MG PO ×2 (09:35→17:26)
[2025-03-25] MEDS: ELIQUIS 5 MG PO ×2 (09:35→21:07)
[2025-03-25] MEDS: B COMPLEX w/VITAMIN C 1 CAPLET PO (09:35)
[2025-03-25] MEDS: PACERONE 200 MG PO (09:35)
[2025-03-25 12:28] LABS: Glucose - Point of Care 234 mg/dl (70-99)
[2025-03-25] MEDS: NOVOLOG FLEXPEN-MODERATE RESISTANCE 3 UNITS SC (12:30)
--- NOTE | 2025-03-25 12:41 | PTCARENOTE ---
Was weaned to room air earlier in shift, SaO2 maintaining 90-93% on room air. Patient requesting SaO2 be checked again d/t SOB, now 85% on room air. 2L O2 reapplied, now >93%.
[2025-03-25] MEDS: MANNITOL 25% 12.5 GRAMS IV ×2 (13:30→14:34)
[2025-03-25 13:31] LABS: Hematocrit 24.2 % (37.0-47.0); Hemoglobin 8.0 g/dL (12.0-16.0); Mean Corp Hgb Conc. 33.1 g/dL (33.0-37.0); Mean Corpuscular Volume 91.7 fL (81.0-99.0); Nucleated Red Blood Cells % 0 %; Platelet Count 212 10^3/uL (130-400); Red Cell Dist. Width 15.5 % (11.5-14.5)
[2025-03-25] MEDS: FLEXBUMIN 25% FOR HEMODIALYSIS 12.5 GRAMS IV ×2 (13:36→14:30)
[2025-03-25 13:43] LABS: Blood Urea Nitrogen 30 mg/dl (7-17); Calcium 8.3 mg/dl (8.4-10.2); Chloride 97 mmol/L (98-107); Estimated Creatinine Clearance 15 ml/min; Glucose 136 mg/dl (70-99); Potassium 4.1 mmol/L (3.5-5.1); Sodium 131 mmol/L (135-145); eGFR 15.53
[2025-03-25 13:51] LABS: Carbon Dioxide 31 mmol/L (22-30)
[2025-03-25 14:00] LABS: Free T3 3.24 pg/ml (2.77-5.27)
--- NOTE | 2025-03-25 15:51 | W.PN.NEPH.HD ---
Assessment
-
pt seen during HD
vitals stable
UF as toelrates
need to establish new EDW
HD again tomorrow
CVC functions fine
wean O2 as able
Progress Note - Hemodialysis
-
Date of Service: March 25, 2025
Duration: 30 minutes and 2 hours
Opti-Dialyzer: 160
Ultrafiltration: Other (3kg)
Blood Flow: 350
Dialysate Flow: 600
Heparin: no
EPO: no
[2025-03-25] MEDS: FEOSOL 325 MG PO (17:26)
[2025-03-25] MEDS: NOVOLOG FLEXPEN-MODERATE RESISTANCE 1 UNITS SC (17:32)
[2025-03-25 17:51] LABS: Glucose - Point of Care 182 mg/dl (70-99)
[2025-03-25] MEDS: LIPITOR 40 MG PO (21:07)
[2025-03-25] MEDS: NEURONTIN 100 MG PO (21:07)
[2025-03-25] MEDS: FLUSH (NSS) 1 FLUSH IV (21:08)
[2025-03-25 21:45] LABS: Glucose - Point of Care 247 mg/dl (70-99)
[2025-03-25] MEDS: MELATONIN 3 MG PO (21:51)
[2025-03-26] VITALS (8 sets, daily range): BP systolic 113–135; BP diastolic 49–61; PULSE 76; O2SAT 97; BMI 31.1
--- NOTE | 2025-03-26 07:26 | W.PN.HOSP.TC ---
Today's Communication/Plan
-
Scheduled hemodialyasis for today
increase insulin sliding scale to control blood glucose level
CBC, CMP
Monitor weight, I/O, creatinine, GFR.
Assessment / Plan
Assessment / Plan
75-year-old female k/h/o end-stage renal disease, A-fib on Eliquis, hypertension, hyperlipidemia, venous stasis dermatitis, CAD, type 2 diabetes presented with shortness of breath
# Shortness of breath secondary to volume overload:
BP 120/45, sa o2 92 (her oxygen weaned off because the patient is stable with room air)
Temperature 98.2 F, blood culture- preliminary reports - no growth ( monitor temperature curve),
Chest x-ray on 03/24 impression showed mild CHF with probable very small left effusion.
(Acute non-cardiac pulmonary edema due to fluid overload)
Shortness of breath, pedal edema due to volume overload, patient improved after hemodialysis yesterday.
Monitored I/O-120/150 mL
V/Q scan -impression 03/24/2025 mentioned
1. Low probability of pulmonary embolism,
2. Findings consistent with both airway disease.
weight reduced from 81 kg at the time of admission to 74.8kg today.
Patient on telemetry.
Restricted diet with less than 2 g sodium, less than 2 g potassium.
No fluid restriction.
Record of request from the [facility] to know the reason for torsemide hold.
Flu, COVID test negative.
# End-stage renal disease:
Restricted diet with less than 2 g sodium, less than 2 g potassium.
Current creatinine 4.9 (h--> 3.0 high---> 3.3 high
Patient had hemodialysis yesterday. (in total Twice from the time of the admission) ,
her weight got reduced 3 kg from yesterday after the procedure.
Hemoglobin currently 8.1 (l)---> 8.4, monitor Hb routine.
Nephrology consulted.
Planning to restart torsemide after discussing with oil change technician.
updated the results to the son yesterday.
Asymptomatic bacteriuria:
Urinalysis studies reports 70-80 A
Urine albumin trace 3+, many urine bacteria,
MRSA results are pending
# Persistent A-fib:
Currently on amiodarone 200 mg
Apixaban 5 mg twice daily.
#Diabetes:
Insulin sliding scale started.
Repaglinide 0.5 mg restarted yesterday after recording high blood glucose 366. Blood glucose today increased from 136--->222(h)
Increased insulin sliding scale to control blood glucose level.
Check blood glucose regularly.
Today morning her blood glucose level is 210 high.
Keep the patient on diabetic diet.
Technical Sales Director consulted.
# Hypertension:
Restarted metoprolol XL 25 mg.
Last night while on sleep patient had bradycardia probably a physiological. If there is more than 10 sinus pauses is pathological.
Amlodipine 10 mg
# Hyperlipidemia:
Continue atorvastatin 40 mg
# GERD:
Continue pantoprazole 20 mg.
# Hypothyroidism:
Currently she is not on levothyroxine at her home medication list.
According to patient she was never diagnosed as hypothyroidism and never had levothyroxine.
Currently her TSH-0.3 low.
free T4 - 3.17 (h), free T3 wnl, indicate hyperthyroidism.
Ordered thyroid antibody.
Thyroid ultrasound order placed for the differential diagnosis of suspecting thyroid nodules/thyroiditis.
Code: Full
Disposition: Home
DVT prophylaxis: Eliquis 5 mg twice daily.
Anticipated Discharge: 24 - 48 hours
Subjective/Interval History
-
Date of Service: March 26, 2025
overnight pt has no concern for dyspnea, palpitation, chest pain, dysuria, abdominal pain, fever, chills.
She had 2nd Hemodialysis yesterday evening. She had a good sleep, and tolerating fluids. She passed urine twice last night.
Objective Data
-
Vital Signs:
Vital Signs
Temp Pulse Resp BP Pulse Ox
98.1 F 77 18 125/49 97
03/26/25 03:25 03/26/25 03:25 03/26/25 03:25 03/26/25 03:25 03/26/25 03:25
I&O
03/25/25 03/26/25 03/27/25
06:59 06:59 06:59
Intake Total 120 / 120 860 / 860
Output Total 150 / 150
Balance -30 / -30 860 / 860
Review of Systems
-
History Source: Patient
All other systems: Reviewed and negative
Constitutional: Reports No Symptoms
[2025-03-26 07:56] LABS: Hematocrit 26.0 % (37.0-47.0); Hemoglobin 8.4 g/dL (12.0-16.0); Mean Corp Hgb Conc. 32.3 g/dL (33.0-37.0); Mean Corpuscular Volume 93.9 fL (81.0-99.0); Platelet Count 205 10^3/uL (130-400); Red Cell Dist. Width 15.1 % (11.5-14.5)
[2025-03-26 08:24] LABS: ALT (SGPT) 17 U/L (0-35); AST (SGOT) 24 U/L (14-36); Albumin 3.2 g/dl (3.5-5.0); Alkaline Phosphatase 221 U/L (38-126); Blood Urea Nitrogen 33 mg/dl (7-17); Calcium 8.8 mg/dl (8.4-10.2); Carbon Dioxide 30 mmol/L (22-30); Chloride 97 mmol/L (98-107); Estimated Creatinine Clearance 13 ml/min; Glucose 222 mg/dl (70-99); Potassium 4.3 mmol/L (3.5-5.1); Sodium 131 mmol/L (135-145); Total Protein 6.7 g/dl (6.3-8.2); eGFR 13.85
[2025-03-26 08:33] LABS: Glucose - Point of Care 210 mg/dl (70-99)
[2025-03-26] MEDS: NOVOLOG FLEXPEN-MODERATE RESISTANCE 3 UNITS SC (08:35)
[2025-03-26] MEDS: TOPROL XL 25 MG PO (08:35)
[2025-03-26] MEDS: B COMPLEX w/VITAMIN C 1 CAPLET PO (08:35)
[2025-03-26] MEDS: VITAMIN D3 (cholecalciferol) 25 MCG PO (08:35)
[2025-03-26] MEDS: ELIQUIS 5 MG PO ×2 (08:36→21:50)
[2025-03-26] MEDS: NORVASC 10 MG PO (08:36)
[2025-03-26] MEDS: PRANDIN 0.5 MG PO ×2 (08:36→17:15)
[2025-03-26] MEDS: PACERONE 200 MG PO (08:36)
[2025-03-26] MEDS: COLACE 100 MG PO (08:36)
[2025-03-26] MEDS: PROTONIX 20 MG PO (08:39)
[2025-03-26 08:44] LABS: Total Iron Binding Capacity 162 ug/dl (265-497)
[2025-03-26 09:10] LABS: Ferritin 319.0 ng/ml (11.1-264.0)
--- NOTE | 2025-03-26 10:16 | PN.CDI ---
CDI
- -
CDI:
Physician Documentation Request
Admit Date: 03/24/25 13:33
Dear Doctor,
Please review the following and provide your response in the progress notes.
Clinical Indicators:
Pt admitted with shortness of breath secondary to volume overload.
PMH includes A-fib on Eliquis.
If possible, please provide further specificity regarding atrial fibrillation, such as:
Paroxysmal atrial fibrillation - terminates spontaneously or with intervention within 7 days of onset
Persistent atrial fibrillation - episodes of continuous AF that last more than 7 days and do not self-terminate
Other - please specify
Unable to further specify
Use of terms such as suspected, likely, concern for, or probable (associated with a specific diagnosis that is being evaluated, monitored, or treated as if it exists) are acceptable and can be coded in the inpatient setting, when documented at the
time of discharge.
Thank you,
Ashlyn De RN, BSN
CDI Specialist
[facility]
Please use your independent medical judgment in providing your response.
--- NOTE | 2025-03-26 10:21 | PN.CDI ---
CDI
- -
CDI:
Physician Documentation Request
Admit Date: 03/24/25 13:33
Dear Doctor,
Please review the following and provide your response in the progress notes.
Clinical Indicators:
Pt admitted for Shortness of breath secondary to volume overload.
Pt PMH includes HFpEF.
Recent admiision to [place] [facility] asked to stop torsemide
03/24 [facility] note: ' Imp...Acute on chr CHF pEF...'
03/25 PN: ' Acute hypoxemic respiratory insufficiency. Pulmonary edema....Will discuss resuming torsemide 100 mg on on dialysis days to help optimize volume status.'
' Chest x-ray on 03/24 impression showed mild CHF with probable very small left effusion.
Shortness of breath, pedal edema due to volume overload, patient improved after hemodialysis yesterday.'
03/24 BNP [id number]
Please clarify the acuity and etiology of the pulmonary edema:
Acute pulmonary edema due to heart failure Acute on chronic pEF
Acute non-cardiac pulmonary edema due to fluid overload
Chronic pulmonary edema due to non-cardiac etiology (specify cause)
Chronic pulmonary edema due to heart failure pEF
Other
Use of terms such as suspected, likely, concern for, or probable (associated with a specific diagnosis that is being evaluated, monitored, or treated as if it exists) are acceptable and can be coded in the inpatient setting, when documented at the
time of discharge.
Thank you,
KAYY Wade
CDI Specialist
[facility]
Please use your independent medical judgment in providing your response.
[2025-03-26] MEDS: NOVOLOG FLEXPEN-MODERATE RESISTANCE 5 UNITS SC (13:06)
[2025-03-26 13:18] LABS: Glucose - Point of Care 256 mg/dl (70-99)
--- NOTE | 2025-03-26 13:41 | W.PN.NEPH.HD ---
Assessment
-
Seen on dialysis tolerated. Likely due to another ultrafiltration tomorrow
Progress Note - Hemodialysis
-
Date of Service: March 26, 2025
Duration: 30 minutes and 2 hours
Opti-Dialyzer: 160
Ultrafiltration: Other (3kg)
Blood Flow: 350
Dialysate Flow: 600
Heparin: no
EPO: no
[2025-03-26] MEDS: MANNITOL 25% 12.5 GRAMS IV (14:03)
[2025-03-26] MEDS: RETACRIT 10000 UNITS IV (14:03)
[2025-03-26] MEDS: FLEXBUMIN 25% FOR HEMODIALYSIS 12.5 GRAMS IV (14:03)
[2025-03-26] MEDS: FEOSOL 325 MG PO (17:15)
[2025-03-26] MEDS: MUCINEX 600 MG PO (17:15)
[2025-03-26 17:20] LABS: Glucose - Point of Care 119 mg/dl (70-99)
[2025-03-26] MEDS: NOVOLOG FLEXPEN-MODERATE RESISTANCE SC (17:24)
[2025-03-26 21:05] LABS: Hematocrit 30.5 % (37.0-47.0); Hemoglobin 9.5 g/dL (12.0-16.0); Mean Corp Hgb Conc. 31.1 g/dL (33.0-37.0); Mean Corpuscular Volume 97.1 fL (81.0-99.0); Platelet Count 214 10^3/uL (130-400); Red Cell Dist. Width 15.5 % (11.5-14.5)
[2025-03-26 21:25] LABS: Blood Urea Nitrogen 12 mg/dl (7-17); Calcium 9.1 mg/dl (8.4-10.2); Carbon Dioxide 26 mmol/L (22-30); Chloride 95 mmol/L (98-107); Estimated Creatinine Clearance 27 ml/min; Glucose 218 mg/dl (70-99); Potassium 4.5 mmol/L (3.5-5.1); Sodium 132 mmol/L (135-145); eGFR 33.01
[2025-03-26] MEDS: LIPITOR 40 MG PO (21:49)
[2025-03-26] MEDS: NEURONTIN 100 MG PO (21:49)
[2025-03-26] MEDS: MELATONIN 3 MG PO (21:50)
--- NOTE | 2025-03-26 22:30 | PTCARENOTE ---
Pt c/o urinary urgency, frequency, and pain in vaginal area. Abdomen tender to palpation. Pt experienced episode of stress incontinence, with blood-tinged urine. ASSISTANT SUPERINTENDENT order for urinary culture put in-- unable to obtain sample at this time d/t
oliguria. ASSISTANT SUPERINTENDENT saw and evaluated patient. Bladder scan and straight cath ordered and attempted-- unsuccessful, with 4 mL scanned and 0 output. Bladder irrigated at bedside, per ASSISTANT SUPERINTENDENT recommendation. 100 mL instilled and extracted, with small blood
clots present.
--- NOTE | 2025-03-26 22:50 | W.PN.UPDATE ---
Update Note
Progress Note Update
late entry: RN reached out at change of shift for a as the pt was complaining of burning and urgency. UC ordered. Lab stated the sample collected wasn't large to run. Orders placed for bladder scan and straight cath- RN read 0ML. Encouraged RN to
recheck in a few hours.
~2230 On recheck pt had a small episode of incontinence on the Covidien that was blood tinged. Bladder scan read 4ml at the time but due to pts discomfort we straight cathed her and found 2 small clots. Irrigated with NSS for blood tinged fluid but
no urine out put. Will start empiric Zosyn and added a urology consult.
[2025-03-26 23:35] LABS: Glucose - Point of Care 219 mg/dl (70-99)
[2025-03-26] MEDS: TYLENOL 1000 MG PO (23:36)
[2025-03-26] MEDS: ZOSYN 50 IV (23:37)
[2025-03-27 03:22] VITALS: BP 108/47
[2025-03-27] MEDS: ZOSYN 50 IV ×3 (05:56→21:36)
[2025-03-27 06:00] VITALS: BMI 29.8
--- NOTE | 2025-03-27 06:55 | W.PN.HOSP.TC ---
Today's Communication/Plan
-
cmp, cbc,
monitor H&H
thyroid peroxidase Ab, thyroglobulin Ab results are pending.
BKV virus results are pending.
Assessment / Plan
Assessment / Plan
75-year-old female k/h/o end-stage renal disease, A-fib on Eliquis, hypertension, hyperlipidemia, venous stasis dermatitis, CAD, type 2 diabetes presented with shortness of breath.
# Shortness of breath secondary to volume overload:
BP 120/45-->108/47-->115/46, sa o2 92 (her oxygen weaned off because the patient is stable with room air)
Temperature 99.3 F, blood culture- preliminary reports - no growth ( monitor temperature curve),
I/O 780/
V/Q scan -impression 03/24/2025 mentioned
1. Low probability of pulmonary embolism,
2. Findings consistent with both airway disease.
weight reduced from 81 kg at the time of admission to 71.4kg today.
Patient on telemetry.
Restricted diet with less than 2 g sodium, less than 2 g potassium.
No fluid restriction.
Record of request from the [facility] to know the reason for torsemide hold.
Flu, COVID test negative.
# Vaginal atrophy:
On external examination-vaginal atrophy+++.
probably the reason for burning sensation around the ureteral region.
External estrogen cream trying to order but the formulation is not available in pharmacy.
# End-stage renal disease:
Restricted diet with less than 2 g sodium, less than 2 g potassium.
creatinine 4.9 (h--> 3.0 high---> 3.3--)1.6-->2.3(h)
eGFR 21.36 low,
Patient had hemodialysis today. (in total 4 from the time of the admission) ,
Hemoglobin currently 8.1 (l)---> 8.4-->8.3, monitor Hb routine.
Nephrology consulted.
updated the results to the son today.
Asymptomatic bacteriuria:
Urinalysis studies reports 70-80 A
Urine albumin trace 3+, many urine bacteria,
MRSA results are pending
Blood culture, urine culture pending.
# Persistent A-fib:
Currently on amiodarone 200 mg
Apixaban 5 mg twice daily.
#Diabetes:
Insulin sliding scale started.
Repaglinide 0.5 mg restarted yesterday after recording high blood glucose 366. Blood glucose today increased from 136--->222(h)
Increased insulin sliding scale to control blood glucose level.
Check blood glucose regularly.
Today morning her blood glucose level is 210 high.
Keep the patient on diabetic diet.
Injection Molding Machine Operator consulted.
# Hypertension:
Restarted metoprolol XL 25 mg.
Last night while on sleep patient had bradycardia probably a physiological. If there is more than 10 sinus pauses is pathological.
Amlodipine 10 mg
# Hyperlipidemia:
Continue atorvastatin 40 mg
# GERD:
Continue pantoprazole 20 mg.
# Hypothyroidism:
Currently she is not on levothyroxine at her home medication list.
According to patient she was never diagnosed as hypothyroidism and never had levothyroxine.
Currently her TSH-0.3 low.
free T4 - 3.17 (h), free T3 wnl, indicate hyperthyroidism.
Ordered thyroid antibody.
Thyroid ultrasound order placed for the differential diagnosis of autoimmune thyroiditis.
Code: Full
Disposition: Home
DVT prophylaxis: Eliquis 5 mg twice daily.
Anticipated Discharge: 24 - 48 hours
Subjective/Interval History
-
Date of Service: March 27, 2025
Overnight she experienced severe pain, burning sensation followed by pressure for urination, associated with chills.
Straight catheter was placed and blood clots was noted and irrigated with normal saline and noted no urine output with straight catheter. Bladder scan resulted 4 mL.
Empiric Zosyn started overnight afterwards patient felt better.
Urology consulted and suspecting of kidney stones, planning for CT scan for today.
Today morning patient is getting hemodialysis when I saw the patient.
Objective Data
-
Labs:
Laboratory Results
03/26/25 03/27/25
20:55 06:00
WBC 9.7 Pending
Hgb 9.5 L Pending
Hct 30.5 L Pending
Plt Count 214 Pending
Sodium 132 L Pending
Potassium 4.5 Pending
Chloride 95 L Pending
Carbon Dioxide 26 Pending
BUN 12 Pending
Creatinine 1.6 H Pending
Glucose 218 H Pending
Calcium 9.1 Pending
Total Bilirubin Pending
AST Pending
ALT Pending
Alkaline Phosphatase Pending
Vital Signs:
Vital Signs
Temp Pulse Resp BP Pulse Ox
98.8 F 73 17 108/47 94
03/27/25 03:22 03/27/25 03:22 03/27/25 03:22 03/27/25 03:22 03/27/25 03:22
I&O
03/25/25 03/26/25 03/27/25
06:59 06:59 06:59
Intake Total 120 / 120 860 / 860 780 / 780
Output Total 150 / 150
Balance -30 / -30 860 / 860 780 / 780
Review of Systems
-
History Source: Patient
All other systems: Reviewed and negative
Physical Exam
-
General: Well Developed
Cardiac: Regular Rhythm and S1/S2
GI: Soft, Nontender and Nondistended
Genito-urinary: No Costovertebral Tender and Other (vaginal atrophy present)
Neuro: AO x 3
Psych: Calm
[2025-03-27 07:00] VITALS: BP 130/48
--- NOTE | 2025-03-27 07:29 | CON.MD ---
Consultation - Medical
-
see dictated note
pt with multiple med problems- afib on eliquis/obesity/ esrd on HD since may
urologically no hx of hematuria- but some UTI's
admitted with fluid overload
last night- had sudden onset of freq and urgency- straining to urinate- bladder scan was minimal- nurses performed straight cath- small clots came out- irrigated thru straight cath- cleared
pt was given dose of zosyn and tylenol
now feels fine
plan
unsure of etiology
pt makes very little urine and has not voided since- but feesl very comfortable
have eliquis for now
urgent CT to r/o clot/mass or stone
ucx obtained and pending- would continue zosyn
Consultation
-
Date/Time Consultation Requested: 03/27/25 at 6am- was not called- saw on list
Date/Time Consultation Performed: 03/27/25 at 7am
Requesting Provider: Med Service
Performing Provider: Dr Carey
Reason for Consultation: hematuria
[2025-03-27 07:57] LABS: Glucose - Point of Care 149 mg/dl (70-99)
[2025-03-27] MEDS: NOVOLOG FLEXPEN-MODERATE RESISTANCE SC ×2 (08:17→13:03)
[2025-03-27] MEDS: COLACE 100 MG PO (08:18)
[2025-03-27] MEDS: VITAMIN D3 (cholecalciferol) 25 MCG PO (08:18)
[2025-03-27] MEDS: PROTONIX 20 MG PO (08:18)
[2025-03-27] MEDS: B COMPLEX w/VITAMIN C 1 CAPLET PO (08:18)
[2025-03-27 09:11] LABS: Hematocrit 25.7 % (37.0-47.0); Hemoglobin 8.3 g/dL (12.0-16.0); Mean Corp Hgb Conc. 32.3 g/dL (33.0-37.0); Mean Corpuscular Volume 92.8 fL (81.0-99.0); Platelet Count 192 10^3/uL (130-400); Red Cell Dist. Width 15.4 % (11.5-14.5)
[2025-03-27 10:01] LABS: ALT (SGPT) 17 U/L (0-35); AST (SGOT) 25 U/L (14-36); Albumin 3.2 g/dl (3.5-5.0); Alkaline Phosphatase 136 U/L (38-126); Blood Urea Nitrogen 19 mg/dl (7-17); Calcium 8.4 mg/dl (8.4-10.2); Carbon Dioxide 30 mmol/L (22-30); Chloride 93 mmol/L (98-107); Estimated Creatinine Clearance 19 ml/min; Glucose 127 mg/dl (70-99); Potassium 3.7 mmol/L (3.5-5.1); Sodium 127 mmol/L (135-145); Total Protein 6.6 g/dl (6.3-8.2); eGFR 21.36
[2025-03-27 11:00] VITALS: BP 115/46
[2025-03-27 11:49] LABS: Glucose - Point of Care 138 mg/dl (70-99)
[2025-03-27] MEDS: FEOSOL 325 MG PO (12:47)
[2025-03-27] MEDS: PRANDIN 0.5 MG PO ×2 (12:47→17:51)
[2025-03-27] MEDS: NORVASC PO (12:56)
--- NOTE | 2025-03-27 12:56 | W.PN.NEPH.HD ---
Assessment
-
Extra UF only . Tx venkat
Progress Note - Hemodialysis
-
Date of Service: March 27, 2025
[2025-03-27] MEDS: TOPROL XL PO (13:03)
--- NOTE | 2025-03-27 13:58 | CM ---
Addendum entered by La Mckinley 03/27/25 14:27:
Spoke w/son, Olayinka, via phone; he reported that he or patient's sister will provide transport home; also confirmed HH agency is [facility]
Original Note:
Chart reviewed: Disposition -- Homecare in 24-48 hours; home PT recommended.
Plan: home with resumption of care from [facility] and resumption of outpatient HD with [facility] Fax- [phone]
Referral sent to [facility] via [facility]
Plan: Discharger to Home w/ home health services when medically stable
[2025-03-27 15:00] VITALS: BP 102/44
[2025-03-27] MEDS: MUCINEX 1200 MG PO ×2 (15:22→20:23)
[2025-03-27] MEDS: PACERONE PO (15:42)
[2025-03-27 17:08] LABS: Glucose - Point of Care 264 mg/dl (70-99)
[2025-03-27] MEDS: NOVOLOG FLEXPEN-MODERATE RESISTANCE 5 UNITS SC (17:51)
[2025-03-27 19:41] VITALS: BP 102/43
[2025-03-27 21:03] LABS: Thyroglobulin Antibodies <1.5 IU/mL (0.0-4.0)
[2025-03-27] MEDS: LIPITOR 40 MG PO (21:36)
[2025-03-27] MEDS: MELATONIN 3 MG PO (21:36)
[2025-03-27] MEDS: NEURONTIN 100 MG PO (21:36)
[2025-03-27 22:00] LABS: Glucose - Point of Care 182 mg/dl (70-99)
[2025-03-27 23:19] VITALS: BP 101/47
[2025-03-28 03:02] VITALS: BP 113/49
[2025-03-28] MEDS: ZOSYN 50 IV ×3 (05:00→22:06)
[2025-03-28 05:38] VITALS: BMI 29.9
--- NOTE | 2025-03-28 07:06 | W.PN.HOSP.TC ---
Today's Communication/Plan
-
60 oz fluid restriction
follow up culture
CBC, CMP
Assessment / Plan
Assessment / Plan
75-year-old female k/h/o end-stage renal disease, A-fib on Eliquis, hypertension, hyperlipidemia, venous stasis dermatitis, CAD, type 2 diabetes, hemodialysis since May presented with shortness of breath.
# Shortness of breath secondary to volume overload:
-BP 120/45-->108/47-->115/46, sa o2 92 (her oxygen weaned off because the patient is stable with room air)
-Temperature 99.3 F, blood culture- preliminary reports - no growth ( monitor temperature curve),
-I/O 780/0
V/Q scan -impression 03/24/2025 mentioned
1. Low probability of pulmonary embolism,
2. Findings consistent with both airway disease.
-weight reduced from 81 kg at the time of admission to 71.8kg today.
-Patient on telemetry.
-Restricted diet with less than 2 g sodium, less than 2 g potassium.
-No fluid restriction.
-Record of request from the [facility] to know the reason for torsemide hold.
-Flu, COVID test negative.
# Hypotension secondary to hemodialysis:
Today morning Pt blood pressure = 88/60, feels dizziness and midodrine 2.5 mg tablet scheduled, and antihypertensives on hold.
# Vaginal atrophy:
On external examination-vaginal atrophy+++.
probably the reason for burning sensation around the ureteral region.
External estrogen cream trying to order but the formulation is not available in pharmacy.
# End-stage renal disease:
Restricted diet with less than 2 g sodium, less than 2 g potassium.
creatinine 4.9 (h--> 3.0 high---> 3.3--)1.6-->2.3(h), eGFR 21.36 low,
Vitals: 113/49, ME 86, RR 20, temp 99.4, O2 sat 94. Output 0
Urology consulted for hematuria
restart Eliquis, To check next void urine for hematuria.
If her hematuria continues then considering for IVC filter.
Yesterday patient underwent 1 hemodialysis in total 5 from the time of administration.
Hemoglobin currently 8.1 (l)---> 8.4-->8.3, monitor Hb routine.
Nephrology consulted.
updated the results to the son today.
Fluid restriction 50 ounces
On 03/27 CT abdomen/pelvis scan reported:
Atrophic kidneys bilaterally corresponding with the given history of end-stage renal disease.
No findings to suggest urinary tract calculus or dilatation bilaterally.
Small bilateral simple renal cysts. ADDITIONAL SUBCENTIMETER SLIGHTLY HIGH ATTENUATION LOWER POLE LEFT RENAL LESION either a hyperdense cyst or SOLID MASS cannot be differentiated on the basis of this study without intravenous contrast.
Asymptomatic bacteriuria:
Urinalysis studies reports 70-80 A
Urine albumin trace 3+, many urine bacteria,
MRSA results are pending
Blood culture, urine culture pending.
# Persistent A-fib:
Currently on amiodarone 200 mg
Apixaban 5 mg twice daily.
#Diabetes:
Insulin sliding scale started.
Repaglinide 0.5 mg restarted yesterday after recording high blood glucose 366. Blood glucose today increased from 136--->222(h)
Increased insulin sliding scale to control blood glucose level.
Check blood glucose regularly.
Today morning her blood glucose level is 210 high.
Keep the patient on diabetic diet.
Greige Goods Inspector consulted.
BKV virus results are pending.
Blood culture final reports are still pending.
# Hypertension:
Restarted metoprolol XL 25 mg.
Last night while on sleep patient had bradycardia probably a physiological. If there is more than 10 sinus pauses is pathological.
Amlodipine 10 mg
# Hyperlipidemia:
Continue atorvastatin 40 mg
# GERD:
Continue pantoprazole 20 mg.
# Hypothyroidism:
Currently she is not on levothyroxine at her home medication list.
According to patient she was never diagnosed as hypothyroidism and never had levothyroxine.
Currently her TSH-0.3 low.
free T4 - 3.17 (h), free T3 wnl, indicate hyperthyroidism.
Thyroid peroxidase thyroglobulin antibody<1.5. Thyroid ultrasound normal impression with no evidence of hypervascularity of the thyroid gland or mass.
Code: Full
Disposition: Home
DVT prophylaxis: Eliquis 5 mg twice daily.
Anticipated Discharge: > 48 hours
Subjective/Interval History
-
Date of Service: March 28, 2025
Overnight patient feels improving With concern for dizziness. No concern for chest pain, palpitation, shortness of breath, dysuria, hematuria.
Objective Data
-
Labs:
Laboratory Results
03/28/25
06:00
WBC Pending
Hgb Pending
Hct Pending
Plt Count Pending
Sodium Pending
Potassium Pending
Chloride Pending
Carbon Dioxide Pending
BUN Pending
Creatinine Pending
Glucose Pending
Calcium Pending
Total Bilirubin Pending
AST Pending
ALT Pending
Alkaline Phosphatase Pending
Vital Signs:
Vital Signs
Temp Pulse Resp BP Pulse Ox
99.4 F 86 20 113/49 94
03/28/25 03:02 03/28/25 03:02 03/28/25 03:02 03/28/25 03:02 03/28/25 03:02
I&O
03/27/25 03/28/25 03/29/25
06:59 06:59 06:59
Intake Total 780 / 780 440 / 440
Balance 780 / 780 440 / 440
Review of Systems
-
History Source: Patient
All other systems: Reviewed and negative
Physical Exam
-
Respiratory: Clear to Auscultation
Cardiac: Regular Rhythm and S1/S2
GI: Soft, Nontender and Nondistended
Skin: Warm
Neuro: AO x 3
Psych: Calm
[2025-03-28 07:56] VITALS: BP 106/47
[2025-03-28] MEDS: PRANDIN 0.5 MG PO ×2 (08:01→16:04)
[2025-03-28] MEDS: COLACE 100 MG PO (08:02)
[2025-03-28] MEDS: VITAMIN D3 (cholecalciferol) 25 MCG PO (08:03)
[2025-03-28] MEDS: PROTONIX 20 MG PO (08:03)
[2025-03-28] MEDS: MUCINEX 1200 MG PO ×2 (08:03→22:06)
[2025-03-28] MEDS: B COMPLEX w/VITAMIN C 1 CAPLET PO (08:03)
[2025-03-28 08:04] LABS: Glucose - Point of Care 200 mg/dl (70-99)
[2025-03-28] MEDS: NOVOLOG FLEXPEN-MODERATE RESISTANCE 3 UNITS SC (08:51)
[2025-03-28 09:52] VITALS: BP 82/42; BP 87/41; PULSE 87; PULSE 89; O2SAT 96
[2025-03-28] MEDS: PACERONE PO (09:53)
[2025-03-28] MEDS: NORVASC PO (09:53)
[2025-03-28] MEDS: TOPROL XL PO (09:53)
[2025-03-28 09:56] LABS: Urine Character Cloudy (Clear)
[2025-03-28 10:24] LABS: Urine Squamous Cell >30 /LPF (Few)
[2025-03-28 10:26] LABS: Urine Red Blood Cell 80-90 /HPF (0-2)
[2025-03-28 10:27] LABS: Urine White Cell 90-100 /HPF (0-5)
--- NOTE | 2025-03-28 11:27 | W.PN.URO.CBU ---
Today's Communication / Plan
-
continue antibx
await ucx
restart eliquis and observe
Assessment / Plan
-
ESRD on HD
hx of afib and PE an eliquis
hematuria- suspected due to +ucx and eliquis and low urine volumes
reviewed with pt/ med team
continue zosyn- await ucx results- would suggest total of 14 days of treatment
ok to restart eliquis (? if lower dose appropriate)- if hematuria worsens- may need consideration for ivc filter and inpatient cysto
will follow
Diagnosis
-
Date of Service: March 28, 2025
-
Patient Diagnosis:
hematuria
UTI
Subjective
-
pt says she feels 'weak'
no specific urinary complaint
eliquis was held yesterday- pt only making small volumes of urine- te colored today
ucx + for gram neg rods
ct yesterday showed hyperdense renal cysts- no mass or sig clot in bladder
Objective
-
Vital Signs
Temp Pulse Resp BP Pulse Ox
99.1 F 79 18 104/45 93
03/28/25 07:56 03/28/25 10:42 03/28/25 07:56 03/28/25 10:42 03/28/25 07:56
Intake and Output
03/27/25 03/28/25 03/29/25
06:59 06:59 06:59
Intake Total 780 / 780 440 / 440
Balance 780 / 780 440 / 440
Intake:
Oral fluids 780 / 780 440 / 440
Other:
How many times incontinent 1
SMALL amount urine
Number of approximated SMALL 1
amounts of urine
Number of approximated MODERATE 2
amounts of urine
Number of unmeasured liquid
stools
Rectum 1
Review of Systems
-
Constitutional: Fatigue
Respiratory: No Symptoms
Cardiac: No Symptoms
Abdomen/GI: No Symptoms
: No Symptoms
Physical Exam
-
General - well developed, well nourished, no acute distress
[2025-03-28 11:30] VITALS: BP 122/54
[2025-03-28] MEDS: FEOSOL 325 MG PO (12:41)
[2025-03-28 12:50] LABS: Hematocrit 26.7 % (37.0-47.0); Hemoglobin 8.6 g/dL (12.0-16.0); Mean Corp Hgb Conc. 32.2 g/dL (33.0-37.0); Mean Corpuscular Volume 91.8 fL (81.0-99.0); Platelet Count 206 10^3/uL (130-400); Red Cell Dist. Width 15.7 % (11.5-14.5)
[2025-03-28] MEDS: RETACRIT 10000 UNITS IV (13:04)
[2025-03-28] MEDS: MANNITOL 25% 12.5 GRAMS IV (13:04)
[2025-03-28 13:32] LABS: Glucose - Point of Care 193 mg/dl (70-99)
[2025-03-28 13:33] LABS: ALT (SGPT) 18 U/L (0-35); AST (SGOT) 26 U/L (14-36); Albumin 3.5 g/dl (3.5-5.0); Alkaline Phosphatase 197 U/L (38-126); Blood Urea Nitrogen 47 mg/dl (7-17); Calcium 8.8 mg/dl (8.4-10.2); Carbon Dioxide 26 mmol/L (22-30); Chloride 94 mmol/L (98-107); Estimated Creatinine Clearance 10 ml/min; Glucose 228 mg/dl (70-99); Potassium 3.6 mmol/L (3.5-5.1); Sodium 128 mmol/L (135-145); Total Protein 7.4 g/dl (6.3-8.2); eGFR 10.67
[2025-03-28] MEDS: NOVOLOG FLEXPEN-MODERATE RESISTANCE 1 UNITS SC (14:01)
--- NOTE | 2025-03-28 14:38 | W.PN.NEPH.HD ---
Assessment
-
pt seen during HD
vitals noted, BP low s/p midodrine , hold BP meds
no UF as she lost close to 10kg
symp hypotension will give 250cc NS during HD
CT-kidney hyperdense area need to monitor out pt
abx per primary, await cx
cvc functions well
d/w pt
Progress Note - Hemodialysis
-
Date of Service: March 28, 2025
Duration: 30 minutes and 3 hours
Potassium Bath: 3
Calcium Bath: 2.5
Opti-Dialyzer: 160
Ultrafiltration: Other (0)
Blood Flow: 400
Dialysate Flow: 600
Heparin: no
EPO: [id number]
--- NOTE | 2025-03-28 14:55 | PN.CDI ---
CDI
- -
CDI:
Physician Documentation Request
Admit Date: 03/24/25 13:33
Dear Doctor,
Please review the following and provide your response in the progress notes.
Clinical Indicators:
Pt admitted with Shortness of breath secondary to volume overload.
Laboratory Tests
03/26/25 03/27/25 03/28/25
20:55 08:07 12:15
Sodium 132 L 127 L 128 L
Based on the above, could you clarify in the progress notes, the appropriate diagnosis, if significant, that supports the above Lab abnormalities and additional evaluation, monitoring and/or treatment rendered:
Hyponatremis
Insignificant abnormal Lab values
Other
Use of terms such as suspected, likely, concern for, or probable (associated with a specific diagnosis that is being evaluated, monitored, or treated as if it exists) are acceptable and can be coded in the inpatient setting, when documented at the
time of discharge.
Thank you,
Ashlyn De RN, BSN
CDI Specialist
[place] [facility]
Please use your independent medical judgment in providing your response.
[2025-03-28 15:16] VITALS: BP 146/59
[2025-03-28] MEDS: ANESTHETIC LOZENGE 1 LOZENGE PO ×2 (16:33→22:06)
[2025-03-28 17:46] LABS: Glucose - Point of Care 107 mg/dl (70-99)
[2025-03-28] MEDS: NOVOLOG FLEXPEN-MODERATE RESISTANCE SC (17:48)
[2025-03-28 21:52] LABS: Glucose - Point of Care 252 mg/dl (70-99)
[2025-03-28] MEDS: NEURONTIN 100 MG PO (22:06)
[2025-03-28] MEDS: MELATONIN 3 MG PO (22:06)
[2025-03-28] MEDS: LIPITOR 40 MG PO (22:06)
[2025-03-28 23:18] VITALS: BP 129/41
[2025-03-29] VITALS (7 sets, daily range): BP systolic 102–135; BP diastolic 37–67; BMI 30.6
[2025-03-29] MEDS: ZOSYN 50 IV ×3 (05:57→21:19)
[2025-03-29 08:05] LABS: Hematocrit 27.9 % (37.0-47.0); Hemoglobin 8.5 g/dL (12.0-16.0); Mean Corp Hgb Conc. 30.5 g/dL (33.0-37.0); Mean Corpuscular Volume 97.2 fL (81.0-99.0); Platelet Count 189 10^3/uL (130-400); Red Cell Dist. Width 16.0 % (11.5-14.5)
[2025-03-29 08:06] LABS: Glucose - Point of Care 137 mg/dl (70-99)
[2025-03-29] MEDS: TOPROL XL 25 MG PO (08:12)
[2025-03-29] MEDS: NOVOLOG FLEXPEN-MODERATE RESISTANCE SC (08:12)
[2025-03-29] MEDS: PRANDIN 0.5 MG PO ×2 (08:15→17:20)
[2025-03-29] MEDS: PROTONIX 20 MG PO (08:15)
[2025-03-29] MEDS: VITAMIN D3 (cholecalciferol) 25 MCG PO (08:15)
[2025-03-29] MEDS: B COMPLEX w/VITAMIN C 1 CAPLET PO (08:15)
[2025-03-29] MEDS: MUCINEX 1200 MG PO ×2 (08:16→20:31)
[2025-03-29] MEDS: NORVASC 10 MG PO (08:16)
[2025-03-29] MEDS: COLACE 100 MG PO (08:16)
[2025-03-29] MEDS: PACERONE 200 MG PO (08:16)
[2025-03-29 08:28] LABS: ALT (SGPT) 18 U/L (0-35); AST (SGOT) 25 U/L (14-36); Albumin 3.0 g/dl (3.5-5.0); Alkaline Phosphatase 152 U/L (38-126); Blood Urea Nitrogen 18 mg/dl (7-17); Calcium 8.3 mg/dl (8.4-10.2); Carbon Dioxide 29 mmol/L (22-30); Chloride 98 mmol/L (98-107); Estimated Creatinine Clearance 19 ml/min; Glucose 121 mg/dl (70-99); Potassium 3.8 mmol/L (3.5-5.1); Sodium 133 mmol/L (135-145); Total Protein 6.3 g/dl (6.3-8.2); eGFR 21.36
--- NOTE | 2025-03-29 09:14 | W.PN.HOSP.TC ---
Addendum entered and electronically signed by Drake Olson DO 03/30/25 10:17:
CDI: Hyponatremia, monitor BMP QD on HD schedule
Original Note:
Today's Communication/Plan
-
Continue antibiotics and follow urine culture
Start Imodium as needed
Continue with midodrine
OOB as tolerated
Assessment / Plan
Assessment / Plan
#Urinary tract infection
- Episode x 1 of dysuria with some blood in urine; initial culture mixed with stool growing ESBL; repeat pending
- Initial urine culture with ESBL E. coli though listed sensitivity to Zosyn which she has been on
- No further episodes of discomfort; has not had any fevers and WBC stable within normal range
- Will continue IV Zosyn for now, trend CBC and and temperature curve, monitor symptoms
- Plan to curbside infectious disease on initial culture with ESBL
#Hyperthyroidism
- Unclear etiology though differentials do include early Graves' disease, TMNG though less likely
- Elevated free T4 with low TSH; has not had any symptoms or signs of hyperthyroid state
- Anti-TPO antibodies negative, thyroid ultrasound unremarkable
- Will need to follow-up OP for repeat TSH and URIBE uptake scan
#Hypotension without circulatory shock
#Primary hypertension
- Blood pressure became soft on 03/28 following sequential HD sessions
- Was started on midodrine with improvement of blood pressure, home amlodipine held
- Will continue with midodrine 2.5 TID PRN for SBP < 100
- Monitor vital signs
#Acute hypoxemic respiratory insufficiency
#Decompensated HFpEF
#Type IV cardiorenal physiology
#End-stage renal disease
- Presented with volume overload; likely insufficient volume removal during HD sessions
- Had quick improvement with extra dialysis sessions as orchestrated by nephrology
- Now stable on room air, required only 2 L at max here
- Continue to monitor, SpO2 goal >90%
- BK viral panel sent
#Loose stool
- Very likely secondary to antibiotics, low suspicious for infectious colitis or gastroenteritis
- Will start as needed Imodium for now
#Paroxysmal AF
- Home regimen includes amiodarone 200 mg, metoprolol XL 25 mg, Eliquis 5 mg BID
- No known history of any electrophysiologic intervention
- Has not had any episodes of RVR here, continue on telemetry
#Sinus pause while sleeping
- Occurred x 1, had transient episode of heart rate near 38
- Has since been stable on home metoprolol XL
- No indication for PPM
#Left lower pole renal lesion
- Imaging showed renal cyst and 1 left lower pole lesion
- Recommended for repeat CT with contrast as OP
#NIDDM
- Home regimen includes repaglinide; no recent A1c
- Transition ISS with Accu-Cheks while inpatient
#Dyslipidemia
- No known ASCVD history
- Home regimen includes high intensity statin
#GERD
- No known history of erosive disease or Charles's esophagus
- Home regimen includes pantoprazole
#H/O pulmonary embolism
- Home regimen includes Eliquis
- V/Q scan here without signs of significant PE
Diet: Renal
Code: Full
Disposition: Home
DVT prophylaxis: Eliquis 5 mg twice daily.
Anticipated Discharge: 24 - 48 hours
Subjective/Interval History
-
Date of Service: March 29, 2025
Seen and examined at bedside. No acute events reported overnight. AFVSS this morning
Patient states she feels well today. Did develop some loose stools likely from antibiotics.
Denies any new complaints today. Laboratory studies stable
Objective Data
-
Labs:
Laboratory Results
03/29/25
06:53
WBC 8.6
Hgb 8.5 L
Hct 27.9 L
Plt Count 189
Sodium 133 L
Potassium 3.8
Chloride 98
Carbon Dioxide 29
BUN 18 H
Creatinine 2.3 H
Glucose 121 H
Calcium 8.3 L
Total Bilirubin 1.1
AST 25
ALT 18
Alkaline Phosphatase 152 H
Vital Signs:
Vital Signs
Temp Pulse Resp BP Pulse Ox
98.6 F 77 16 122/47 91
03/29/25 08:19 03/29/25 08:19 03/29/25 08:19 03/29/25 08:19 03/29/25 08:19
I&O
03/28/25 03/29/25 03/30/25
06:59 06:59 06:59
Intake Total 440 / 440 960 / 960
Balance 440 / 440 960 / 960
Review of Systems
-
History Source: Patient
All other systems: Reviewed and negative
Physical Exam
-
General: Well Developed, No Apparent Distress and Appears Chronically Ill
HEENT: Normocephalic, Atraumatic, Moist Mucous Membranes and Anicteric
Respiratory: Clear to Auscultation and Non Labored Respirations; Negative Accessory Resp Muscle Use
Cardiac: Regular Rhythm and S1/S2; Negative Murmur, Rub or Gallop
GI: Soft, Nontender, Nondistended and Normal Bowel Sounds
Musculoskeletal: No Clubbing, No Cyanosis and No Edema
Skin: Warm and Dry; Negative Rash
Neuro: AO x 3, Nonfocal/Grossly Intact and Central Nerve's Intact; Negative Tremors
Psych: Calm
Data Reviewed
-
Labs: Labs Reviewed by me, Discussed with Patient and Discussed with Family
[2025-03-29] MEDS: ELIQUIS 2.5 MG PO ×2 (10:18→20:31)
--- NOTE | 2025-03-29 10:24 | W.PN.NEPH.PH ---
Today's Communication / Plan
-
HD Monday
Assessment/Plan
-
IMP:
ESRD MWF [facility]
right CW tunneled catheter
Acute on chr CHF pEF
Chr anemia of CKD
HTN
HLD
left AVG -non function
Afib
PE
NIDDM
diabetes retinopathy, nephropathy, neuropathy
Hypothyroidism
GERD
PLan:
A/w sob , CHF and anemia hb 8.1
had extra HDs and lost sig wt
now hypotensive and dizzy improving slowly
wean off midodrine and hold anti HTN meds
monitor for diarrhea while on abx for UTI
improved UTI symp
ok to resume Torsemide at d/c
high dose RICKY and fe sat only 10%, may use IV fe in next HD
Hyponatremia is dilutional
d/w pt
-
-
Date of Service: March 29, 2025
CC / HPI / ROS
-
Chief Complaint:
ESRD
History of Present Illness:
Bp improving
no fever
sodium low but stable at 133
Review of Systems:
no sob or cp
improving dizziness
has diarrhea
no dysuria now , no fever
Labs
-
Labs:
WBC 8.6 10^3/uL (4.8-10.8) 03/29/25 06:53
RBC 2.87 10^6/uL (4.20-5.40) L 03/29/25 06:53
Hgb 8.5 g/dL (12.0-16.0) L 03/29/25 06:53
Hct 27.9 % (37.0-47.0) L 03/29/25 06:53
Plt Count 189 10^3/uL (130-400) 03/29/25 06:53
Sodium 133 mmol/L (135-145) L 03/29/25 06:53
Potassium 3.8 mmol/L (3.5-5.1) 03/29/25 06:53
Chloride 98 mmol/L (98-107) 03/29/25 06:53
Carbon Dioxide 29 mmol/L (22-30) 03/29/25 06:53
BUN 18 mg/dl (7-17) H 03/29/25 06:53
Creatinine 2.3 mg/dL (0.6-1.0) H 03/29/25 06:53
eGFR 21.36 03/29/25 06:53
Glucose 121 mg/dl (70-99) H 03/29/25 06:53
Calcium 8.3 mg/dl (8.4-10.2) L 03/29/25 06:53
Fbv-E-Kvejyrsodfu Pept 26822 pg/ml 03/24/25 07:39
Albumin 3.0 g/dl (3.5-5.0) L 03/29/25 06:53
Physical Exam
-
Vital Signs:
Vital Signs
Temp Pulse Resp BP Pulse Ox
98.6 F 77 16 122/47 91
03/29/25 08:19 03/29/25 08:19 03/29/25 08:19 03/29/25 08:19 03/29/25 08:19
Cardiovascular:: Regular rate and rhythm
Respiratory:: Bilateral: CTA
Lung Excursion:: Normal
Abdomen:: Nontender and Soft
Extremity Edema:: None: Bilateral:
Henderson Catheter: No
--- NOTE | 2025-03-29 12:14 | FALL ---
Description of Fall: Unwitnessed fall, patient yelling out in room, this RN and second RN Rylee walked into room and found patient sitting up on floor in front of chair. Patient states she was attempting to pull lever to put legs down in chair and
when legs came down, she slid out of the chair onto the floor on her buttocks.
Injuries Noted: None noted on assessment, patient denies any pain, no open wounds on assessment.
Action Taken: Patient assessed by this RN, vitals taken by tech. Patient denies any injury or pain, patient assisted back into chair and MD made aware.
Name of Provider Notified: Dr Olson
[2025-03-29 12:21] LABS: Glucose - Point of Care 237 mg/dl (70-99)
[2025-03-29] MEDS: NOVOLOG FLEXPEN-MODERATE RESISTANCE 3 UNITS SC ×2 (12:25→17:21)
[2025-03-29] MEDS: FEOSOL 325 MG PO (12:25)
[2025-03-29] MEDS: IMODIUM 2 MG PO ×2 (15:10→21:25)
[2025-03-29] MEDS: ANESTHETIC LOZENGE 1 LOZENGE PO ×2 (15:10→20:31)
[2025-03-29 17:22] LABS: Glucose - Point of Care 241 mg/dl (70-99)
[2025-03-29] MEDS: MELATONIN 3 MG PO (21:19)
[2025-03-29] MEDS: LIPITOR 40 MG PO (21:19)
[2025-03-29] MEDS: NEURONTIN 100 MG PO (21:19)
[2025-03-29 22:12] LABS: Glucose - Point of Care 243 mg/dl (70-99)
[2025-03-30 03:29] VITALS: BP 131/52
[2025-03-30 06:00] VITALS: BMI 30.8
[2025-03-30] MEDS: ZOSYN 50 IV ×3 (06:01→21:16)
[2025-03-30 06:11] LABS: Hematocrit 26.7 % (37.0-47.0); Hemoglobin 8.2 g/dL (12.0-16.0); Mean Corp Hgb Conc. 30.7 g/dL (33.0-37.0); Mean Corpuscular Volume 98.2 fL (81.0-99.0); Nucleated Red Blood Cells % 0 %; Platelet Count 182 10^3/uL (130-400); Red Cell Dist. Width 15.9 % (11.5-14.5)
[2025-03-30 06:40] LABS: Blood Urea Nitrogen 32 mg/dl (7-17); Calcium 8.5 mg/dl (8.4-10.2); Carbon Dioxide 28 mmol/L (22-30); Chloride 98 mmol/L (98-107); Estimated Creatinine Clearance 12 ml/min; Glucose 140 mg/dl (70-99); Potassium 3.7 mmol/L (3.5-5.1); Sodium 132 mmol/L (135-145); eGFR 12.48
[2025-03-30 07:47] VITALS: BP 127/53
[2025-03-30 07:47] LABS: Glucose - Point of Care 152 mg/dl (70-99)
--- NOTE | 2025-03-30 08:22 | W.PN.HOSP.TC ---
Today's Communication/Plan
-
Continue antibiotics and follow repeat urine culture
Recheck TSH and free T4 tomorrow
Start Lomotil for loose stools
PRN midodrine
Robitussin for cough
Assessment / Plan
Assessment / Plan
#Urinary tract infection
- Episode x 1 of dysuria with some blood in urine; initial culture mixed with stool growing ESBL; repeat pending
- Initial urine culture with ESBL E. coli though listed sensitivity to Zosyn which she has been on with stability
- No further episodes of discomfort; has not had any fevers and WBC stable within normal range
- Will continue IV Zosyn for now, trend CBC and and temperature curve, monitor symptoms
- Discussed culture with ID, unable to transition to Augmentin as likely resistant despite sensitivity on culture
- Repeat urine cultures pending, will need to follow-up results for recurrence of ESBL and consider OP IV antibiotics if present
- Consider ID consult based on results of repeat urine culture
#Hyperthyroidism
- Unclear etiology though differentials do include early Graves' disease, TMNG though less likely
- Elevated free T4 with low TSH; has not had any symptoms or signs of hyperthyroid state
- Anti-TPO antibodies negative, thyroid ultrasound unremarkable
- Will need to follow-up OP for repeat TSH and URIBE uptake scan
- Consider endocrine eval if loose stools worsen, new signs of hyperthyroid state or significantly worsen TSH/T4 on repeat lab
#Hypotension without circulatory shock
#Primary hypertension
- Blood pressure became soft on 03/28 following sequential HD sessions
- Was started on midodrine with improvement of blood pressure, home amlodipine held
- Midodrine requirements have minimized, 1 dose given in roughly last 36 hours
- Will continue with midodrine 2.5 TID PRN for SBP < 100
- Monitor vital signs
#Acute hypoxemic respiratory insufficiency
#Decompensated HFpEF
#Type IV cardiorenal physiology
#End-stage renal disease
- Presented with volume overload; likely insufficient volume removal during HD sessions
- Had quick improvement with extra dialysis sessions as orchestrated by nephrology
- Now stable on room air; required only 2 L at max here which has been weaned
- Continue to monitor, SpO2 goal >90%
- BK viral panel sent for transplant consideration
- Resolved
#Loose stool
- Very likely secondary to antibiotics, low suspicious for infectious colitis or gastroenteritis; diarrhea occurs after IV Zosyn given
- Also cannot rule out component of hyperthyroid state though timing suspicious with presentation after antibiotics started
- Has had minimal improvement with Imodium; will discontinue and transition to Lomotil PRN
- Continue to monitor bowel status, recheck TSH and free T4 to assess for acute worsening
#Paroxysmal AF
- Home regimen includes amiodarone 200 mg, metoprolol XL 25 mg, Eliquis 5 mg BID
- No known history of any electrophysiologic intervention
- Has not had any episodes of RVR here, continue on telemetry
#Sinus pause while sleeping
- Occurred x 1, had transient episode of heart rate near 38
- Has since been stable on home metoprolol XL
- No indication for PPM
#Left lower pole renal lesion
- Imaging showed renal cyst and 1 left lower pole lesion
- Recommended for repeat CT with contrast as OP
#NIDDM
- Home regimen includes repaglinide; no recent A1c
- Transition ISS with Accu-Cheks while inpatient
#Dyslipidemia
- No known ASCVD history
- Home regimen includes high intensity statin
#GERD
- No known history of erosive disease or Charles's esophagus
- Home regimen includes pantoprazole
#H/O pulmonary embolism
- Home regimen includes Eliquis
- V/Q scan here without signs of significant PE
Diet: Renal
Code: Full
Disposition: Home
DVT prophylaxis: Eliquis 5 mg twice daily.
Discussed with pole frame construction worker
Anticipated Discharge: 24 - 48 hours
Subjective/Interval History
-
Date of Service: March 30, 2025
Seen and examined at the bedside. No acute events reported overnight, no acute events on telemetry. AFVSS this morning
Labs stable this morning. Next planned dialysis session on Monday. Weight increased 0.3 kg
Complains of continuation of loose stools following doses of antibiotics. Also with mild cough that is persistent. Otherwise feels well and denies other complaints
Objective Data
-
Labs:
Laboratory Results
03/30/25
05:58
WBC 8.8
Hgb 8.2 L
Hct 26.7 L
Plt Count 182
Sodium 132 L
Potassium 3.7
Chloride 98
Carbon Dioxide 28
BUN 32 H
Creatinine 3.6 H
Glucose 140 H
Calcium 8.5
Vital Signs:
Vital Signs
Temp Pulse Resp BP Pulse Ox
98.3 F 72 18 127/53 93
03/30/25 07:47 03/30/25 07:47 03/30/25 07:47 03/30/25 07:47 03/30/25 07:47
I&O
03/29/25 03/30/25 03/31/25
06:59 06:59 06:59
Intake Total 960 / 960 840 / 840
Output Total 100 / 100
Balance 960 / 960 740 / 740
Review of Systems
-
History Source: Patient
All other systems: Reviewed and negative
Physical Exam
-
General: Well Developed, No Apparent Distress, Appears Chronically Ill and Obese
HEENT: Normocephalic, Atraumatic, Moist Mucous Membranes, Anicteric and PERRLA
Respiratory: Clear to Auscultation and Non Labored Respirations; Negative Accessory Resp Muscle Use
Cardiac: Regular Rhythm and S1/S2; Negative Murmur, Rub or Gallop
GI: Soft, Nontender, Nondistended and Normal Bowel Sounds
Musculoskeletal: No Clubbing, No Cyanosis and No Edema
Skin: Warm and Dry; Negative Rash
Neuro: AO x 3, Nonfocal/Grossly Intact and Central Nerve's Intact
Psych: Calm
Data Reviewed
-
Labs: Labs Reviewed by me and Discussed with Patient
[2025-03-30] MEDS: MUCINEX 1200 MG PO (08:42)
[2025-03-30] MEDS: PACERONE 200 MG PO (08:42)
[2025-03-30] MEDS: B COMPLEX w/VITAMIN C 1 CAPLET PO (08:42)
[2025-03-30] MEDS: ELIQUIS 2.5 MG PO ×2 (08:42→20:06)
[2025-03-30] MEDS: TOPROL XL 25 MG PO (08:42)
[2025-03-30] MEDS: PRANDIN 0.5 MG PO ×2 (08:42→16:21)
[2025-03-30] MEDS: COLACE 100 MG PO (08:43)
[2025-03-30] MEDS: NOVOLOG FLEXPEN-MODERATE RESISTANCE 1 UNITS SC ×2 (08:43→17:38)
[2025-03-30] MEDS: VITAMIN D3 (cholecalciferol) 25 MCG PO (08:43)
[2025-03-30] MEDS: PROTONIX 20 MG PO (08:43)
[2025-03-30] MEDS: NOVOLOG FLEXPEN-MODERATE RESISTANCE 3 UNITS SC (12:51)
[2025-03-30 12:52] LABS: Glucose - Point of Care 257 mg/dl (70-99)
[2025-03-30] MEDS: FEOSOL 325 MG PO (12:52)
[2025-03-30] MEDS: LOMOTIL 1 TABLET PO (12:58)
[2025-03-30 15:28] VITALS: BP 126/50
--- NOTE | 2025-03-30 15:49 | W.PN.NEPH.PH ---
Today's Communication / Plan
-
HD tomorrow
Assessment/Plan
-
IMP:
ESRD MWF [facility]
right CW tunneled catheter
Acute on chr CHF pEF
Chr anemia of CKD
HTN
HLD
left AVG -non function
Afib
PE
NIDDM
diabetes retinopathy, nephropathy, neuropathy
Hypothyroidism
GERD
PLan:
A/w sob , CHF and anemia hb 8.1
bp stable off midodrine and hold anti HTN meds
monitor for diarrhea while on abx for UTI
improved UTI symp
ok to resume Torsemide at d/c
high dose RICKY and fe sat only 10%, may use IV fe in next HD
Hyponatremia is dilutional
d/w pt
-
-
Date of Service: March 30, 2025
CC / HPI / ROS
-
Chief Complaint:
ESRD
History of Present Illness:
Bp improving
no fever
sodium low but stable at 132
Review of Systems:
no sob or cp
improved dizziness
has diarrhea mainly after meals
no dysuria now , no fever
Labs
-
Labs:
WBC 8.8 10^3/uL (4.8-10.8) 03/30/25 05:58
RBC 2.72 10^6/uL (4.20-5.40) L 03/30/25 05:58
Hgb 8.2 g/dL (12.0-16.0) L 03/30/25 05:58
Hct 26.7 % (37.0-47.0) L 03/30/25 05:58
Plt Count 182 10^3/uL (130-400) 03/30/25 05:58
Sodium 132 mmol/L (135-145) L 03/30/25 05:58
Potassium 3.7 mmol/L (3.5-5.1) 03/30/25 05:58
Chloride 98 mmol/L (98-107) 03/30/25 05:58
Carbon Dioxide 28 mmol/L (22-30) 03/30/25 05:58
BUN 32 mg/dl (7-17) H 03/30/25 05:58
Creatinine 3.6 mg/dL (0.6-1.0) H 03/30/25 05:58
eGFR 12.48 03/30/25 05:58
Glucose 140 mg/dl (70-99) H 03/30/25 05:58
Calcium 8.5 mg/dl (8.4-10.2) 03/30/25 05:58
Iob-S-Qtpgpegdnxs Pept 98391 pg/ml 03/24/25 07:39
Albumin 3.0 g/dl (3.5-5.0) L 03/29/25 06:53
Physical Exam
-
Vital Signs:
Vital Signs
Temp Pulse Resp BP Pulse Ox
98.3 F 72 18 127/53 93
03/30/25 07:47 03/30/25 08:42 03/30/25 07:47 03/30/25 08:42 03/30/25 07:47
Cardiovascular:: Regular rate and rhythm
Respiratory:: Bilateral: CTA
Lung Excursion:: Normal
Abdomen:: Nontender and Soft
Extremity Edema:: None: Bilateral:
Henderson Catheter: No
[2025-03-30] MEDS: ROBITUSSIN 200 MG PO ×2 (16:28→21:17)
[2025-03-30 17:30] LABS: Glucose - Point of Care 166 mg/dl (70-99)
[2025-03-30 17:41] LABS: BK Qnt NAAT IU/mL, Urine Not Detected; BK Qnt NAAT Interp, Urine Not Detected (Not Detected); BK Qnt NAAT log IU/mL, Urine Not Detected log IU/mL
[2025-03-30] MEDS: ANESTHETIC LOZENGE 1 LOZENGE PO (20:23)
[2025-03-30] MEDS: LIPITOR 40 MG PO (21:16)
[2025-03-30] MEDS: MELATONIN 3 MG PO (21:16)
[2025-03-30] MEDS: NEURONTIN 100 MG PO (21:16)
[2025-03-30 21:41] LABS: Glucose - Point of Care 215 mg/dl (70-99)
[2025-03-30] MEDS: BENADRYL 25 MG PO (22:58)
[2025-03-30 23:40] VITALS: BP 128/62
--- NOTE | 2025-03-31 00:13 | PTCARENOTE ---
Pt complaining of itching. Lotion applied to upper and lower body per request. Pt continued to express discomfort due to itching. Semaj MIGUEL notified, orders obtained, see MAR. no other issues to report at this time. Will continue to monitor.
[2025-03-31] MEDS: ZOSYN 50 IV ×3 (05:03→21:57)
--- NOTE | 2025-03-31 05:17 | PTCARENOTE ---
Pt slept well overnight. No issues to report. Vital signs stable. Pt denies any complaints. Call guerra in reach. Will monitor.
[2025-03-31 06:00] VITALS: BMI 31.0
[2025-03-31] MEDS: NOVOLOG FLEXPEN-MODERATE RESISTANCE SC ×2 (07:35→11:30)
[2025-03-31 07:50] VITALS: BP 132/54
[2025-03-31 08:05] LABS: Hematocrit 29.0 % (37.0-47.0); Hemoglobin 8.6 g/dL (12.0-16.0); Mean Corp Hgb Conc. 29.7 g/dL (33.0-37.0); Mean Corpuscular Volume 96.7 fL (81.0-99.0); Nucleated Red Blood Cells % 0 %; Platelet Count 174 10^3/uL (130-400); Red Cell Dist. Width 16.1 % (11.5-14.5)
[2025-03-31] MEDS: FLEXBUMIN 25% FOR HEMODIALYSIS 12.5 GRAMS IV ×2 (09:00→10:25)
[2025-03-31] MEDS: MANNITOL 25% 12.5 GRAMS IV ×2 (09:05→10:26)
[2025-03-31 09:12] LABS: Blood Urea Nitrogen 45 mg/dl (7-17); Calcium 8.6 mg/dl (8.4-10.2); Carbon Dioxide 25 mmol/L (22-30); Chloride 100 mmol/L (98-107); Estimated Creatinine Clearance 9 ml/min; Glucose 199 mg/dl (70-99); Magnesium 1.8 mg/dl (1.6-2.3); Potassium 4.4 mmol/L (3.5-5.1); Sodium 135 mmol/L (135-145); eGFR 9.06
[2025-03-31] MEDS: RETACRIT 10000 UNITS IV (09:16)
--- NOTE | 2025-03-31 09:31 | W.PN.NEPH.HD ---
Assessment
-
Patient seen on HD
bp at 103 for u/f
Progress Note - Hemodialysis
-
Date of Service: March 31, 2025
Duration: 30 minutes and 3 hours
Potassium Bath: 3
Calcium Bath: 2.5
Opti-Dialyzer: 160
Ultrafiltration: Other (2.5kg)
Blood Flow: 400
Dialysate Flow: 600
Heparin: none
EPO: 10K
--- NOTE | 2025-03-31 09:53 | CM ---
HD today .
Pt receives out pt HD at [facility]. Family transports
Pt has private care givers from 8pm to 8 am .
She lives with son .Pt requested [facility] .
PLAN Home with [facility] fax [phone] . Resume Out pt [facility] fax [phone]
[2025-03-31 10:41] LABS: Glucose - Point of Care 116 mg/dl (70-99)
--- NOTE | 2025-03-31 11:40 | PTCARENOTE ---
Patient's son Olayinka called with an update per his request. Patient agreeable to RN calling son with an update.
[2025-03-31] MEDS: PRANDIN 0.5 MG PO ×2 (12:51→16:54)
[2025-03-31] MEDS: PROTONIX 20 MG PO (12:51)
[2025-03-31] MEDS: FEOSOL 325 MG PO (12:51)
[2025-03-31] MEDS: B COMPLEX w/VITAMIN C 1 CAPLET PO (12:51)
[2025-03-31] MEDS: VITAMIN D3 (cholecalciferol) 25 MCG PO (12:51)
[2025-03-31] MEDS: PACERONE 200 MG PO (13:00)
[2025-03-31] MEDS: TOPROL XL 25 MG PO (13:00)
[2025-03-31] MEDS: ELIQUIS PO (13:08)
[2025-03-31] MEDS: ELIQUIS 2.5 MG PO ×2 (13:10→20:00)
--- NOTE | 2025-03-31 13:35 | W.PN.HOSP.TC ---
Today's Communication/Plan
-
Assessment / Plan
Assessment / Plan
General: No Apparent Distress, Comfortable and Conversant
HEENT: NormoCephalic, Moist mucous membranes, Atraumatic
Respiratory: Clear and Non Labored Respirations
Cardiac: S1/S2 and Regular Rhythm; No Rub or Gallop
GI: Soft, Non Tender, Non Distended and Normal Bowel Sounds
Musculoskeletal: No Edema, no deformity, right chest dialysis catheter
: NO Henderson
Neuro: Awake, Alert, Nonfocal/grossly intact
Psych: Calm and cooperative
#Urinary tract infection
- Episode x 1 of dysuria with some blood in urine; initial culture mixed with stool growing ESBL; repeat negative although already on antibiotics
- Has completed 5 days of IV Zosyn based on sensitivities
- Medically stable for discharge
# Subclinical hyperthyroidism
- Likely not contributing to clinical picture at this time
- Very mildly elevated free T4 with very mildly suppressed TSH; has not had any symptoms or signs of hyperthyroid state
- Anti-TPO antibodies negative, thyroid ultrasound unremarkable
- Will need to follow-up OP for repeat TSH and URIBE uptake scan if applicable
#Hypotension without circulatory shock
#Primary hypertension
- Blood pressure became soft on 03/28 following sequential HD sessions
- Was started on midodrine with improvement of blood pressure, home amlodipine held
- Midodrine requirements have minimized, 1 dose given in roughly last 36 hours
- Will continue with midodrine 2.5 TID PRN for SBP < 100
- Monitor vital signs
- Restart home amlodipine as needed
#Acute hypoxemic respiratory insufficiency
#Decompensated HFpEF
#Type IV cardiorenal physiology
#End-stage renal disease
- Presented with volume overload; likely insufficient volume removal during HD sessions
- Had quick improvement with extra dialysis sessions as orchestrated by nephrology
- Now stable on room air; required only 2 L at max here
- Continue to monitor, SpO2 goal >90%
- BK viral panel sent for transplant consideration
- Resolved
#Loose stool
- Very likely secondary to antibiotics, low suspicious for infectious colitis or gastroenteritis; diarrhea occurs after IV Zosyn given
- Has had minimal improvement with Imodium; will discontinue and transition to Lomotil PRN
#Paroxysmal AF
- Home regimen includes amiodarone 200 mg, metoprolol XL 25 mg, Eliquis 2.5 mg BID
- No known history of any electrophysiologic intervention
- Has not had any episodes of RVR here, continue on telemetry
#Sinus pause while sleeping
- Occurred x 1, had transient episode of heart rate near 38
- Has since been stable on home metoprolol XL
- No indication for PPM
#Left lower pole renal lesion
- Imaging showed renal cyst and 1 left lower pole lesion
- Recommended for repeat CT with contrast as OP
#NIDDM
- Home regimen includes repaglinide; no recent A1c
- Transition ISS with Accu-Cheks while inpatient
#Dyslipidemia
- No known ASCVD history
- Home regimen includes high intensity statin
#GERD
- No known history of erosive disease or Charles's esophagus
- Home regimen includes pantoprazole
#H/O pulmonary embolism
- Home regimen includes Eliquis
- V/Q scan here without signs of significant PE
Diet: Renal
Code: Full
Disposition: Home
DVT prophylaxis: Eliquis 2.5 mg twice daily.
Discussed with geoscience specialist
Anticipated Discharge: Within 24 hours
Subjective/Interval History
-
Date of Service: March 31, 2025
Patient seen and examined at bedside this morning while on dialysis. No acute distress no current complaints.
Objective Data
-
Labs:
Laboratory Results
03/31/25
07:35
WBC 7.9
Hgb 8.6 L
Hct 29.0 L
Plt Count 174
Sodium 135
Potassium 4.4
Chloride 100
Carbon Dioxide 25
BUN 45 H
Creatinine 4.7 H*
Glucose 199 H
Calcium 8.6
Vital Signs:
Vital Signs
Temp Pulse Resp BP Pulse Ox
98.0 F 73 18 132/54 93
03/31/25 07:50 03/31/25 07:50 03/31/25 07:50 03/31/25 07:50 03/31/25 07:50
I&O
03/30/25 03/31/25 04/01/25
06:59 06:59 06:59
Intake Total 840 / 840 1300 / 1300
Output Total 100 / 100
Balance 740 / 740 1300 / 1300
Review of Systems
-
History Source: Patient
All other systems: Reviewed and negative
Physical Exam
-
General: No Apparent Distress
[2025-03-31 15:25] VITALS: BP 120/46
[2025-03-31 16:00] VITALS: BP 112/47; BP 125/56; PULSE 71; O2SAT 96
--- NOTE | 2025-03-31 16:00 | PTCARENOTE ---
Patient had diarrhea and is requesting Lomotil. Patient also c/o dry cough. Lomotil, Cepacol Lozenge and Robitussin given.
[2025-03-31] MEDS: ROBITUSSIN 200 MG PO (16:54)
[2025-03-31] MEDS: LOMOTIL 1 TABLET PO (16:57)
[2025-03-31] MEDS: ANESTHETIC LOZENGE 1 LOZENGE PO (17:01)
[2025-03-31 18:09] LABS: Glucose - Point of Care 207 mg/dl (70-99)
[2025-03-31] MEDS: NOVOLOG FLEXPEN-MODERATE RESISTANCE 3 UNITS SC (18:27)
[2025-03-31 21:39] LABS: Glucose - Point of Care 109 mg/dl (70-99)
[2025-03-31] MEDS: LIPITOR 40 MG PO (21:57)
[2025-03-31] MEDS: MELATONIN 3 MG PO (21:57)
[2025-03-31] MEDS: NEURONTIN 100 MG PO (21:57)
[2025-03-31 23:48] VITALS: BP 125/56
[2025-04-01] MEDS: ZOSYN 50 IV (05:25)
[2025-04-01 05:40] VITALS: BMI 30.1
[2025-04-01 07:30] VITALS: BP 123/53
--- NOTE | 2025-04-01 07:31 | W.PN.URO.CBU ---
Today's Communication / Plan
-
outpt urologic follow up
Assessment / Plan
-
ESRD on HD
hx of afib and PE an eliquis
hematuria- due to +ucx and eliquis and low urine volumes
hematuria has resolved
finish UTI treatment
rec outpt gu follow upfor consideration of cysto and discussion of monitoring of hyperdense renal cysts seen on CT
Diagnosis
-
Date of Service: April 01, 2025
-
Patient Diagnosis:
hematuria
UTI- ESBL
Subjective
-
pt with no bladder pain or hematuria
ucx was + for esbl- on zosyn
Objective
-
Vital Signs
Temp Pulse Resp BP Pulse Ox
98.1 F 80 16 125/56 97
03/31/25 23:48 03/31/25 23:48 03/31/25 23:48 03/31/25 23:48 03/31/25 23:48
Intake and Output
03/31/25 04/01/25 04/02/25
06:59 06:59 06:59
Intake Total 1300 / 1300 1200 / 1200
Balance 1300 / 1300 1200 / 1200
Intake:
Oral fluids 1200 / 1200 1200 / 1200
IV piggybacks 100 / 100
Other:
Number of approximated SMALL 1
amounts of urine
Number of approximated MODERATE 1 4
amounts of urine
Number of unmeasured liquid
stools
Rectum 2
Laboratory Results
03/31/25 07:35
03/31/25 07:35
Review of Systems
-
Constitutional: Fatigue
Respiratory: No Symptoms
Cardiac: No Symptoms
Abdomen/GI: Diarrhea
: No Symptoms
Physical Exam
-
General - no acute distress
Abdomen - soft, non-tender
[2025-04-01 09:17] LABS: Glucose - Point of Care 162 mg/dl (70-99)
[2025-04-01] MEDS: PACERONE 200 MG PO (09:41)
[2025-04-01] MEDS: PROTONIX 20 MG PO (09:42)
[2025-04-01] MEDS: B COMPLEX w/VITAMIN C 1 CAPLET PO (09:42)
[2025-04-01] MEDS: VITAMIN D3 (cholecalciferol) 25 MCG PO (09:42)
[2025-04-01] MEDS: PRANDIN 0.5 MG PO ×2 (09:42→16:55)
[2025-04-01] MEDS: TOPROL XL 25 MG PO (09:42)
[2025-04-01] MEDS: ELIQUIS 2.5 MG PO (09:42)
[2025-04-01] MEDS: NOVOLOG FLEXPEN-MODERATE RESISTANCE 1 UNITS SC ×2 (09:43→16:57)
--- NOTE | 2025-04-01 11:53 | W.DCSUMMARY ---
Discharge Summary
Discharge Data
Date of Admission: 03/24/25
Date of Discharge: 04/01/25
Total time spent discharging patient (in min): 53
-
Pending Results: No
Hospital Course
Ms. Gong is a 75-year-old female with medical history of ESRD (HD MWF), anemia of chronic disease, HFpEF, CAD, A-fib (on Eliquis), pulmonary embolism, and NIDDM who presented with dyspnea. VQ scan showed low probability of pulmonary embolism.
Chest x-ray showed mild pulmonary edema. Her respiratory status improved with dialysis with ultrafiltration. Her blood pressure medication (amlodipine) was held due to relatively normal/slightly low blood pressure after ultrafiltration. She
briefly required scheduled midodrine which was later changed to be used only as needed.
She had some dysuria with mild gross hematuria at which point her Eliquis was held and she was evaluated by urology. She was started on antibiotics for urinary tract infection with resolution of her symptoms. She completed a 5-day course of
antibiotics during this hospitalization. She was ultimately restarted on her Eliquis. CT imaging of her abdomen and pelvis incidentally noted a lower left pole lesion representing either hyperdense cyst or solid mass. The urologist recommended
outpatient follow-up for further evaluation and management of this left kidney lesion.
She developed some loose stools which are likely due to antibiotic use for urinary tract infection. She also uses stool softeners as an outpatient to avoid constipation. She has completed a course of antibiotics and has been given probiotics to
help restore normal bowel chloe and function. She has been instructed to hold stool softeners for loose stools.
Labs revealed very mildly abnormal thyroid function test which should be repeated in 1 to 2 months by her PCP.
At time of hospital discharge she was medically stable. She will need close follow-up with her primary care physician, with her director marketing, and with urology.
General: No Apparent Distress, Comfortable and Conversant
HEENT: NormoCephalic, Moist mucous membranes, Atraumatic
Respiratory: Clear and Non Labored Respirations
Cardiac: S1/S2 and Regular Rhythm; No Rub or Gallop
GI: Soft, Non Tender, Non Distended and Normal Bowel Sounds
Musculoskeletal: No Edema, no deformity, right chest dialysis catheter
: NO Henderson
Neuro: Awake, Alert, Nonfocal/grossly intact
Psych: Calm and cooperative
Discharge Plan
-
Patient Disposition: Home with Home Care
Discharge Diagnosis/Procedures: CHF
ESRD
Mild hyperthyroidism
2 second sinus pause of heart while asleep (benign)
Condition: Fair
Diet: Other diet
Additional Diets: Renal diet (Sodium < 2g, Potassium < 2g, 50 oz fluid restriction daily)
Activity: As tolerated
Driving Restrictions: Not until seen by your Dr
Bathing Restrictions: None
Blood Work: BMP and CBC in 1 week with family doctor
Specialty Instructions: Weigh Daily- Call MD for wt gain/loss 3 lbs overnight/5 lbs in 1 week
Activity Restrictions/Additional Instructions:
You were admitted for difficulty breathing which is likely due to volume overload. Your breathing improved after sufficient blood volume was removed during dialysis sessions during this admission. Your blood pressure was low at times likely due to
blood volume being removed during dialysis, however you have been able to breathe comfortably. At times you required a medication called midodrine and your home blood pressure medication (amlodipine) was held because of this low blood pressure.
Your amlodipine will continue to be held and you will be given a prescription for midodrine to take as needed for low blood pressure. This is a balance of have to be monitored by your primary care physician and director marketing, and medications will be
adjusted by them as needed.
You were treated with antibiotics for urinary tract infection. You have completed the course of antibiotics during this admission. You had some loose stools after starting the antibiotics which should begin to resolve now that you have completed
the course of antibiotics. Taking [id number] probiotics may help to restore normal bowel movements sooner.
A left kidney lesion was incidentally noted on CT imaging. You were evaluated by a urologist who recommended outpatient follow-up for further evaluation and management.
Your labs showed very mildly abnormal thyroid numbers which should be followed up with repeat lab work in 1 to 2 months with your primary care physician.
Instructions: Dialysis and diet
Referrals:
[facility] [Outside, Family Practice] - in less than 1 week
UNKNOWN - PT DOES,NOT KNOW [Family Provider]
Tawana Childers MD [Active, Nephrology] - in one week
Referral Note: if needed
Prescriptions:
New
sennosides-docusate sodium [Senna Plus] 8.6-50 mg Tablet
1 tab PO BIDPRN PRN (Reason: constipation) Qty: 30 0RF
Rx Instructions:
Hold for loose stools
midodrine 2.5 mg Tablet
2.5 mg PO TID@0800,1300,1800 PRN (Reason: SBP < 100) Qty: 30 0RF
Continued
ferrous sulfate [FeroSul] 325 MG tablet
325 mg PO DAILY@1200
atorvastatin 40 mg tablet
40 mg PO HS
amiodarone 200 mg tablet
200 mg PO DAILY
pantoprazole 20 mg tablet,delayed release (DR/EC)
20 mg PO DAILY
repaglinide 0.5 mg tablet
0.5 mg PO BID@0800,1700
gabapentin 100 mg capsule
100 mg PO HS
metoprolol succinate 25 mg tablet extended release 24 hr
25 mg PO DAILY
Eliquis 5 mg tablet
5 mg PO BID
vitamin B complex Tablet
1 tab PO DAILY
cholecalciferol (vitamin D3) [Vitamin D3] 25 mcg (1,000 unit) Tablet
25 mcg PO DAILY
docusate sodium 100 MG capsule
100 mg PO DAILY Qty: 0 0RF
Rx Instructions:
Hold for loose stools
Held
amlodipine 10 mg tablet
10 mg PO DAILY
Hold Instructions: Hold this medication until follow-up with your primary care physician or director marketing for ongoing blood pressure monitoring
Discontinued
metoprolol tartrate 100 mg tablet
100 mg PO DAILY
Discharge Orders:
Discharge Patient (As Directed); Ordered 04/01/25
Ordered By: Jimmy Perez
Discharge Date and Time
Print Language: MONEGASQUE
[2025-04-01 12:22] LABS: Glucose - Point of Care 264 mg/dl (70-99)
[2025-04-01] MEDS: NOVOLOG FLEXPEN-MODERATE RESISTANCE 5 UNITS SC (12:31)
--- NOTE | 2025-04-01 12:35 | CM ---
CM reviewed patient with Attending, cleared for discharge home today. Met with patient bedside and called patient's son, Olayinka, plan for home with [facility] resumption of care, private duty, and family support. IMM verbally reviewed, copy provided to
patient. [facility]. Plan for resumption of outpatient HD tomorrow, 04/02. Updated clinical faxed to [facility] via [facility]. No other discharge needs noted at this time.
PLAN: home with [facility], private duty, family support - son to transport home approx 1800.
[facility] fax #: [phone]
[facility] fax #: [phone]
[2025-04-01 12:48] VITALS: BP 123/52
[2025-04-01] MEDS: FEOSOL 325 MG PO (13:12)
[2025-04-01] MEDS: VISBIOME 2 CAP PO (13:12)
[2025-04-01 15:25] VITALS: BP 114/58
[2025-04-01 16:52] LABS: Glucose - Point of Care 193 mg/dl (70-99)
== END 2025-04-01 19:54 | disposition home health service (06) | DRG 291 ==
LOC: 2 NORTH 13:33
PROVIDERS: Internal Medicine Nephrology; Nurse Practitioner; Specialist; ADMITTING PHYSICIAN Internal Medicine; ATTENDING PHYSICIAN Internal Medicine; CONSULT PHYSICIAN Internal Medicine; CONSULT PHYSICIAN Specialist; EMERGENCY PHYSICIAN Emergency Medicine
PROC: 5A1D70Z Performance of Urinary Filtration, Intermittent, Less than 6 Hours Per Day (ICD-10-PCS; 2025-03-24)
DX: I13.2 Hypertensive heart and chronic kidney disease with heart failure and with stage 5 chronic kidney disease, or end stage renal disease (principal); N18.6 End stage renal disease; E87.1 Hypo-osmolality and hyponatremia; N39.0 Urinary tract infection, site not specified; I50.32 Chronic diastolic (congestive) heart failure; E11.22 Type 2 diabetes mellitus with diabetic chronic kidney disease; E05.90 Thyrotoxicosis, unspecified without thyrotoxic crisis or storm; D63.1 Anemia in chronic kidney disease; I48.91 Unspecified atrial fibrillation; Z99.2 Dependence on renal dialysis; R31.0 Gross hematuria; Z79.01 Long term (current) use of anticoagulants; Z86.711 Personal history of pulmonary embolism; I25.10 Atherosclerotic heart disease of native coronary artery without angina pectoris; I87.2 Venous insufficiency (chronic) (peripheral); Z90.49 Acquired absence of other specified parts of digestive tract; Z88.5 Allergy status to narcotic agent; K21.9 Gastro-esophageal reflux disease without esophagitis; E03.9 Hypothyroidism, unspecified; E11.40 Type 2 diabetes mellitus with diabetic neuropathy, unspecified; E11.65 Type 2 diabetes mellitus with hyperglycemia; E66.01 Morbid (severe) obesity due to excess calories; Z68.30 Body mass index [BMI] 30.0-30.9, adult; E78.00 Pure hypercholesterolemia, unspecified; I80.02 Phlebitis and thrombophlebitis of superficial vessels of left lower extremity; Z79.84 Long term (current) use of oral hypoglycemic drugs; Z79.899 Other long term (current) drug therapy
CPT/HCPCS: 71046; 74176; 76536; 78582; 80048; 80053; 81003; 81015; 82728; 82962; 83540; 83550; 83735; 83880; 84439; 84443; 84481; 85025; 85027; 86376; 86800; 87040; 87070; 87077; 87086; 87186; 87340; 87502; 87799; 87811; 90662; 93005; 97110; 97116; 97162; 97530; 99285; A9540; A9567; G0008; G0257; P9047; Q5106